=== PATIENT | female | born 1960 | race Hispanic/Latino ===

== ENCOUNTER → 2017-12-08 | Outpatient (CLI) | payer MEDICAID ==
[~2017-12-08] MED LIST: ASPI-1197 PO; INSU100V12 SQ; LEVO50TA11 PO; LOVA20TA3 PO; METO-408 PO; NEOM28.44 TP; PANT40TA25 PO; RANO500T3 PO; SERT100T12 PO; SITA100T12 PO; TRAZ-187 PO
== END | disposition home or self-care (01) ==
LOC: RAH 08:00
PROVIDERS: ATTEND Internal Medicine Cardiovascular Disease
DX: R18.8 Other ascites (principal)
CPT/HCPCS: 76700

== ENCOUNTER → 2017-12-16 | Outpatient (CLI) | payer MEDICAID ==
[~2017-12-16] MED LIST changes: +REGADENOSON 0.4 MG/5 ML PF SYG IVP SCH
== END | disposition home or self-care (01) ==
LOC: SHCH 08:11
PROVIDERS: ATTEND Internal Medicine Cardiovascular Disease
DX: I25.118 Atherosclerotic heart disease of native coronary artery with other forms of angina pectoris (principal); I10 Essential (primary) hypertension
CPT/HCPCS: 78452; 93017; 96374; A9500 ×2; J2785

== ENCOUNTER → 2017-12-22 | Outpatient (CLI) | payer MEDICAID ==
[~2017-12-22] MED LIST changes: -REGADENOSON 0.4 MG/5 ML PF SYG IVP SCH
== END | disposition home or self-care (01) ==
LOC: SHCH 15:46
PROVIDERS: ATTEND Internal Medicine Cardiovascular Disease
DX: I51.7 Cardiomegaly (principal); I10 Essential (primary) hypertension
CPT/HCPCS: 93306

== ENCOUNTER → 2018-01-11 | Outpatient (CLI) | payer MEDICAID | END | disposition home or self-care (01) | LOC: SHCH 10:54 | PROVIDERS: ATTEND Internal Medicine Cardiovascular Disease | DX: I73.9 Peripheral vascular disease, unspecified (principal) | CPT/HCPCS: 93925 ==

== ENCOUNTER → 2018-05-24 | Outpatient (CLI) | payer MEDICAID | END | disposition home or self-care (01) | LOC: RAH 08:55 | PROVIDERS: ATTEND Internal Medicine Gastroenterology | DX: R16.0 Hepatomegaly, not elsewhere classified (principal); K76.9 Liver disease, unspecified; B19.20 Unspecified viral hepatitis C without hepatic coma | CPT/HCPCS: 76700; 93975 ==

== ENCOUNTER → 2018-06-06 | Outpatient (CLI) | payer MEDICAID ==
[~2018-06-06] MED LIST changes: +IOHEXOL-350 75 ML VIAL IV ONE
== END | disposition home or self-care (01) ==
LOC: RAH 09:01
PROVIDERS: ATTEND Internal Medicine Gastroenterology
DX: R77.2 Abnormality of alphafetoprotein (principal); N32.89 Other specified disorders of bladder; Z90.49 Acquired absence of other specified parts of digestive tract; Z90.710 Acquired absence of both cervix and uterus
CPT/HCPCS: 74178; Q9967

== ENCOUNTER → 2018-08-02 | Outpatient (CLI) | payer MEDICAID ==
[~2018-08-02] MED LIST changes: -IOHEXOL-350 75 ML VIAL IV ONE
== END | disposition home or self-care (01) ==
LOC: SHCH 12:59
PROVIDERS: ATTEND Internal Medicine Cardiovascular Disease
DX: I73.9 Peripheral vascular disease, unspecified (principal)
CPT/HCPCS: 93930

== ENCOUNTER → 2019-05-21 | Outpatient (CLI) | payer MEDICAID ==
[~2019-05-21] VITALS: Ht 167.6 cm; Wt 88.0 kg
[~2019-05-21] MED LIST changes: +REGADENOSON 0.4 MG/5 ML PF SYG IVP SCH
== END | disposition home or self-care (01) ==
LOC: SHCH 08:08
PROVIDERS: ATTEND Internal Medicine Cardiovascular Disease
DX: I10 Essential (primary) hypertension (principal)
CPT/HCPCS: 78452; 93017; 96374; A9500 ×2; J2785

== ENCOUNTER → 2019-06-01 | Outpatient (CLI) | payer MEDICAID ==
[~2019-06-01] MED LIST changes: -REGADENOSON 0.4 MG/5 ML PF SYG IVP SCH
== END | disposition home or self-care (01) ==
LOC: SHCH 15:15
PROVIDERS: ATTEND Internal Medicine Cardiovascular Disease
DX: I73.9 Peripheral vascular disease, unspecified (principal)
CPT/HCPCS: 93925

== ENCOUNTER → 2019-08-02 | Outpatient (CLI) | payer MEDICAID | END | disposition home or self-care (01) | LOC: RAH 14:31 | PROVIDERS: ATTEND Internal Medicine | DX: E04.2 Nontoxic multinodular goiter (principal); E03.9 Hypothyroidism, unspecified; R13.10 Dysphagia, unspecified | CPT/HCPCS: 76536 ==

== ENCOUNTER → 2020-02-11 | Outpatient (CLI) | payer MEDICAID ==
[~2020-02-11] MED LIST changes: -PANT40TA25 PO; +PANT40TA54 PO
== END | disposition home or self-care (01) ==
LOC: RAH 08:29
PROVIDERS: ATTEND Internal Medicine Gastroenterology
DX: K76.0 Fatty (change of) liver, not elsewhere classified (principal); R16.2 Hepatomegaly with splenomegaly, not elsewhere classified; Z90.49 Acquired absence of other specified parts of digestive tract
CPT/HCPCS: 76700; 93975

== ENCOUNTER → 2020-06-20 | Outpatient (CLI) | payer MEDICAID | END | disposition home or self-care (01) | LOC: RAH 10:18 | PROVIDERS: ATTEND Internal Medicine | DX: E04.2 Nontoxic multinodular goiter (principal); I48.91 Unspecified atrial fibrillation | CPT/HCPCS: 76536 ==

== ENCOUNTER → 2020-08-12 | Outpatient (CLI) | payer MEDICAID | END | disposition home or self-care (01) | LOC: RAH 08:41 | PROVIDERS: ATTEND Internal Medicine Gastroenterology | DX: K76.0 Fatty (change of) liver, not elsewhere classified (principal); Z90.49 Acquired absence of other specified parts of digestive tract | CPT/HCPCS: 76700; 93975 ==

== ENCOUNTER → 2021-01-28 | Outpatient (CLI) | payer MEDICAID ==
[~2021-01-28] MED LIST changes: +SERT-440 PO; -SERT100T12 PO
== END | disposition home or self-care (01) ==
LOC: RAH 13:22
PROVIDERS: ATTEND Family Medicine
DX: Z12.31 Encounter for screening mammogram for malignant neoplasm of breast (principal)
CPT/HCPCS: 77067

== ENCOUNTER 2021-04-24 12:32 | Emergency (ER) | payer MEDICAID ==
[~2021-04-24] VITALS: Ht 167.6 cm; Wt 74.8 kg
[2021-04-24] MEDS ORDERED: LACTATED RINGERS 1000ML 1,000 ML IV ONE (13:00)
[2021-04-24 13:39] LABS: BASOPHILS % (AUTO) 0.2 % (0.0-5.0); EOSINOPHILS % (AUTO) 1.7 % (0.0-8.0); HEMATOCRIT 37.2 % (36-48); LYMPHOCYTES % (AUTO) 23.5 % (21.0-51.0); MEAN CORPUSCULAR HEMOGLOBIN 24.3 pg (27.0-33.0); MEAN CORPUSCULAR HGB CONC 32.3 g/dL (32.0-36.0); MEAN CORPUSCULAR VOLUME 75.5 fL (79-99); MONOCYTES % (AUTO) 6.5 % (3.0-13.0); NEUTROPHILS % (AUTO) 67.7 % (40.0-77.0); PLATELET COUNT (AUTO) 172 K/uL (130-400); RED BLOOD CELL COUNT(AUTO) 4.93 MIL/uL (4.00-5.50); RED CELL DISTRIBUTION WIDTH 14.5 % (11.0-15.5); WHITE BLOOD COUNT (AUTO) 9.9 K/uL (4.8-10.8)
[2021-04-24 13:53] LABS: CREATININE 0.8 mg/dL (0.5-1.5); POTASSIUM 3.9 mmol/L (3.5-5.1)
[2021-04-24 13:57] LABS: ALBUMIN 3.7 g/dL (3.5-5.0); BILIRUBIN,TOTAL 0.3 mg/dL (0.2-1.0); TOTAL PROTEIN, SERUM 7.9 g/dL (6.0-8.3)
[2021-04-24 13:58] VITALS: BP 130/61
[2021-04-24 14:06] LABS: APPEARANCE,URINE Clear (CLEAR); BILIRUBIN,URINE Negative (NEGATIVE); COLOR,URINE Yellow (YELLOW); GLUCOSE, URINE (UA) >=1000 mg/dL (NEGATIVE); KETONES,URINE Negative (NEGATIVE); LEUKOCYTE ESTERASE ,URINE Small (NEGATIVE); NITRATE,URINE Negative (NEGATIVE); OCCULT BLOOD,URINE Negative (NEGATIVE); PROTEIN,URINE Negative (NEGATIVE); UROBILINOGEN,URINE 0.2 mg/dL (0.2-1.0)
[2021-04-24 14:42] LABS: BACTERIA,URINE Few /HPF (None Seen); RBC,URINE 0-1 /HPF (0-1); YEAST,URINE BUDDING Moderate /HPF (None Seen)
[2021-04-24 14:58] VITALS: BP 139/53
[2021-04-24 17:59] VITALS: BP 132/86
== END 2021-04-24 18:08 | disposition home or self-care (01) ==
LOC: EDH 12:32
DX: E10.65 Type 1 diabetes mellitus with hyperglycemia (principal); Z91.19 Patient's noncompliance with other medical treatment and regimen; E78.00 Pure hypercholesterolemia, unspecified; I10 Essential (primary) hypertension; K21.9 Gastro-esophageal reflux disease without esophagitis; Z79.4 Long term (current) use of insulin; Z79.82 Long term (current) use of aspirin; Z79.899 Other long term (current) drug therapy
CPT/HCPCS: 36415; 80053; 81001; 84484 ×2; 85025; 93005; 96360; 99284; J7120

== ENCOUNTER 2021-06-10 12:09 | Observation (INO) | payer MEDICAID ==
[~2021-06-10] VITALS: Ht 167.6 cm; Wt 95.7 kg
[2021-06-10 12:38] LABS: BASOPHILS % (AUTO) 0.4 % (0.0-5.0); HEMATOCRIT 35.7 % (36-48); LYMPHOCYTES % (AUTO) 27.5 % (21.0-51.0); MEAN CORPUSCULAR HEMOGLOBIN 24.6 pg (27.0-33.0); MEAN CORPUSCULAR HGB CONC 32.2 g/dL (32.0-36.0); MEAN CORPUSCULAR VOLUME 76.4 fL (79-99); MONOCYTES % (AUTO) 6.9 % (3.0-13.0); NEUTROPHILS % (AUTO) 62.5 % (40.0-77.0); PLATELET COUNT (AUTO) 185 K/uL (130-400); RED BLOOD CELL COUNT(AUTO) 4.67 MIL/uL (4.00-5.50); RED CELL DISTRIBUTION WIDTH 15.4 % (11.0-15.5); WHITE BLOOD COUNT (AUTO) 8.5 K/uL (4.8-10.8)
[2021-06-10 12:52] LABS: CREATININE 0.9 mg/dL (0.5-1.5); POTASSIUM 4.1 mmol/L (3.5-5.1)
[2021-06-10 12:56] LABS: ALBUMIN 3.6 g/dL (3.5-5.0); BILIRUBIN,TOTAL 0.3 mg/dL (0.2-1.0); TOTAL PROTEIN, SERUM 7.6 g/dL (6.0-8.3)
[2021-06-10] MEDS ORDERED: GLUCAGON 1MG KIT 1 MG ML IM PRN (14:30)
[2021-06-10] MEDS ORDERED: MAGNESIUM 2GM PREMIX 50ML 50 ML IV PRN (14:30)
[2021-06-10] MEDS ORDERED: KCL 20 MEQ ERTAB PO PRN (14:30)
[2021-06-10] MEDS ORDERED: DEXTROSE 50%-WATER 50 ML DISP.SYRIN IV PRN (14:30)
[2021-06-10] MEDS ORDERED: POTASSIUM CHLORIDE 20MEQ/100ML 100 ML IV PRN ×2 (14:30)
[2021-06-10] MEDS ORDERED: POTASSIUM CHLORIDE 10% ELIXIR 20 MEQ/15 ML UDCUP PO PRN (14:30)
[2021-06-10] MEDS ORDERED: LIDOCAINE HCL-MPF 1% 2ML VIAL IV PRN ×2 (14:30)
[2021-06-10] MEDS ORDERED: ACETAMINOPHEN 325 MG TAB PO PRN (15:00)
[2021-06-10] MEDS ORDERED: ONDANSETRON 4MG INJ IVP PRN (15:00)
[2021-06-10] MEDS ORDERED: MORPHINE 2 MG SYG IVP PRN (15:00)
[2021-06-10] MEDS: NITROGLYCERIN 1GM OINT 1 INCH/1GM TD SCH ×2 (15:05→21:41)
[2021-06-10 15:12] LABS: HEMOGLOBIN A1C 9.6 % (4.0-6.0)
[2021-06-10] MEDS ORDERED: RANO10003 PO (17:18)
[2021-06-10] MEDS: INSULIN HUMULIN R 100 UNIT/ML 3ML SQ SCH ×2 (17:36→20:22)
[2021-06-10] MEDS: FAMOTIDINE 20MG TAB PO SCH (21:41)
[2021-06-11 05:03] LABS: HEMATOCRIT 35.9 % (36-48); MEAN CORPUSCULAR HEMOGLOBIN 24.4 pg (27.0-33.0); MEAN CORPUSCULAR VOLUME 76.2 fL (79-99); RED BLOOD CELL COUNT(AUTO) 4.71 MIL/uL (4.00-5.50); RED CELL DISTRIBUTION WIDTH 15.6 % (11.0-15.5); WHITE BLOOD COUNT (AUTO) 7.5 K/uL (4.8-10.8)
[2021-06-11 05:18] LABS: ALBUMIN 3.5 g/dL (3.5-5.0); BILIRUBIN,TOTAL 0.3 mg/dL (0.2-1.0); CREATININE 0.6 mg/dL (0.5-1.5); POTASSIUM 3.8 mmol/L (3.5-5.1); TOTAL PROTEIN, SERUM 7.4 g/dL (6.0-8.3)
[2021-06-11] MEDS: INSULIN HUMULIN R 100 UNIT/ML 3ML SQ SCH ×2 (07:30→11:11)
[2021-06-11] MEDS: NITROGLYCERIN 1GM OINT 1 INCH/1GM TD SCH (08:00)
[2021-06-11] MEDS: FAMOTIDINE 20MG TAB PO SCH (08:00)
[2021-06-11] MEDS ORDERED: ASPIRIN 325MG TAB PO SCH (09:00)
[2021-06-11] MEDS ORDERED: IOHEXOL-350 75 ML VIAL IV ONE (09:32)
[2021-06-11 11:01] VITALS: BP 112/43
== END 2021-06-11 13:09 | disposition home or self-care (01) ==
LOC: EDH 12:09 → EDHIP 12:10 → UNDOADMOB 14:29 → EDHIP 06-11 13:09
PROVIDERS: ADMIT Internal Medicine Critical Care Medicine; ATTEND Internal Medicine Critical Care Medicine
DX: R07.89 Other chest pain (principal); Z20.822 Contact with and (suspected) exposure to COVID-19; I10 Essential (primary) hypertension; I21.4 Non-ST elevation (NSTEMI) myocardial infarction; E11.65 Type 2 diabetes mellitus with hyperglycemia; E03.9 Hypothyroidism, unspecified; I25.10 Atherosclerotic heart disease of native coronary artery without angina pectoris; R20.0 Anesthesia of skin; E66.9 Obesity, unspecified; D64.9 Anemia, unspecified; E78.00 Pure hypercholesterolemia, unspecified; E78.5 Hyperlipidemia, unspecified; I25.2 Old myocardial infarction; K75.9 Inflammatory liver disease, unspecified; Z68.34 Body mass index [BMI] 34.0-34.9, adult; Z79.4 Long term (current) use of insulin; Z79.82 Long term (current) use of aspirin; Z79.84 Long term (current) use of oral hypoglycemic drugs; Z79.890 Hormone replacement therapy; Z79.899 Other long term (current) drug therapy; Z98.890 Other specified postprocedural states; Z86.19 Personal history of other infectious and parasitic diseases
CPT/HCPCS: 36415 ×2; 71045; 71275; 80053 ×2; 82948 ×2; 83036; 83880; 84443; 84484 ×4; 85025; 85027; 85378; 87635; 93005 ×2; 96372 ×2; 99285; G0378 ×22; J1815 ×2; J3490; Q9967

== ENCOUNTER → 2021-07-13 | Outpatient (CLI) | payer MEDICAID ==
[~2021-07-13] MED LIST changes: +RANO10003 PO; -RANO500T3 PO; +REGADENOSON 0.4 MG/5 ML PF SYG IVP SCH
== END | disposition home or self-care (01) ==
LOC: SHCH 07:49
PROVIDERS: ATTEND Internal Medicine Cardiovascular Disease
DX: I25.119 Atherosclerotic heart disease of native coronary artery with unspecified angina pectoris (principal)
CPT/HCPCS: 78452; 93017; 96374; A9500 ×2; J2785

== ENCOUNTER 2021-07-24 12:16 | Inpatient (IN) | payer MEDICAID ==
[~2021-07-24] VITALS: Ht 152.4 cm; Wt 84.0 kg
[~2021-07-24 12:16] MED LIST changes: -REGADENOSON 0.4 MG/5 ML PF SYG IVP SCH
[2021-07-24] MEDS ORDERED: 0.9%NACL 1000ML 1,000 ML IV ONE (12:30)
[2021-07-24] MEDS ORDERED: INSULIN HUMULIN R 100 UNIT/ML 3ML SQ ONE (12:30)
[2021-07-24] MEDS ORDERED: 0.9% NACL 500ML IV.SOLN 1,000 ML IV ONE (12:39)
[2021-07-24 13:12] LABS: BASOPHILS % (AUTO) 0.3 % (0.0-5.0); EOSINOPHILS % (AUTO) 1.2 % (0.0-8.0); HEMATOCRIT 37.6 % (36-48); LYMPHOCYTES % (AUTO) 24.3 % (21.0-51.0); MEAN CORPUSCULAR HEMOGLOBIN 24.7 pg (27.0-33.0); MEAN CORPUSCULAR HGB CONC 31.6 g/dL (32.0-36.0); MONOCYTES % (AUTO) 5.4 % (3.0-13.0); NEUTROPHILS % (AUTO) 68.2 % (40.0-77.0); PLATELET COUNT (AUTO) 196 K/uL (130-400); RED BLOOD CELL COUNT(AUTO) 4.82 MIL/uL (4.00-5.50); RED CELL DISTRIBUTION WIDTH 16.3 % (11.0-15.5); WHITE BLOOD COUNT (AUTO) 11.5 K/uL (4.8-10.8)
[2021-07-24 13:12] LABS: APPEARANCE,URINE Clear (CLEAR); BILIRUBIN,URINE Negative (NEGATIVE); COLOR,URINE Yellow (YELLOW); GLUCOSE, URINE (UA) >=1000 mg/dL (NEGATIVE); KETONES,URINE Negative (NEGATIVE); LEUKOCYTE ESTERASE ,URINE Small (NEGATIVE); NITRATE,URINE Negative (NEGATIVE); OCCULT BLOOD,URINE Moderate (NEGATIVE); PROTEIN,URINE Negative (NEGATIVE); UROBILINOGEN,URINE 0.2 mg/dL (0.2-1.0)
[2021-07-24 13:30] LABS: POTASSIUM 3.8 mmol/L (3.5-5.1)
[2021-07-24 13:35] LABS: ALBUMIN 3.8 g/dL (3.5-5.0); BILIRUBIN,TOTAL 0.3 mg/dL (0.2-1.0); TOTAL PROTEIN, SERUM 7.7 g/dL (6.0-8.3)
[2021-07-24 13:47] LABS: BACTERIA,URINE Rare /HPF (None Seen); MUCUS,URINE Few LPF (None Seen); SQUAMOUS EPITHELIAL CELL,UR 0-2 /HPF (0-2); WBC,URINE 0-1 /HPF (0-1); YEAST,URINE BUDDING Few /HPF (None Seen)
[2021-07-24] MEDS ORDERED: ASPIRIN 325MG TAB PO ONE (14:00)
[2021-07-24] MEDS ORDERED: NITROGLYCERIN 1GM OINT 1 INCH/1GM TD ONE (14:00)
[2021-07-24] MEDS: FLUCONAZOLE 100 MG TAB PO SCH (14:24)
[2021-07-24] MEDS ORDERED: ACETAMINOPHEN 650 MG SUPPOSITORY RC PRN (14:30)
[2021-07-24] MEDS ORDERED: ACETAMINOPHEN 325 MG TAB PO PRN (14:30)
[2021-07-24 15:30] VITALS: BP 133/75
[2021-07-24] MEDS: INSULIN LISPRO 100 UNIT/ML 3ML SQ SCH ×2 (16:10→21:25)
[2021-07-24 19:52] VITALS: BP 102/46
[2021-07-24] MEDS: NYSTATIN-TRIAMCINOLONE CREAM 15 GM TP SCH (21:15)
[2021-07-24 23:51] VITALS: BP 122/72
[2021-07-25 03:38] VITALS: BP 112/70
[2021-07-25 05:03] LABS: BASOPHILS % (AUTO) 0.4 % (0.0-5.0); EOSINOPHILS % (AUTO) 2.4 % (0.0-8.0); HEMATOCRIT 33.8 % (36-48); LYMPHOCYTES % (AUTO) 31.7 % (21.0-51.0); MEAN CORPUSCULAR HEMOGLOBIN 24.7 pg (27.0-33.0); MEAN CORPUSCULAR HGB CONC 32.5 g/dL (32.0-36.0); MONOCYTES % (AUTO) 5.8 % (3.0-13.0); NEUTROPHILS % (AUTO) 58.8 % (40.0-77.0); PLATELET COUNT (AUTO) 189 K/uL (130-400); RED BLOOD CELL COUNT(AUTO) 4.45 MIL/uL (4.00-5.50); RED CELL DISTRIBUTION WIDTH 16.6 % (11.0-15.5); WHITE BLOOD COUNT (AUTO) 7.9 K/uL (4.8-10.8)
[2021-07-25 05:35] LABS: CREATININE 0.6 mg/dL (0.5-1.5); MAGNESIUM 2.1 mg/dL (1.80-2.40); PHOSPHORUS 4.4 mg/dL (2.5-4.9); POTASSIUM 3.7 mmol/L (3.5-5.1)
[2021-07-25 07:15] VITALS: BP 121/59
[2021-07-25] MEDS: INSULIN LISPRO 100 UNIT/ML 3ML SQ SCH ×3 (07:30→21:56)
[2021-07-25] MEDS: ASPIRIN 81MG CHEW TAB PO SCH (09:43)
[2021-07-25] MEDS: PANTOPRAZOLE 40 MG TAB DR PO SCH (09:44)
[2021-07-25] MEDS: SIMVASTATIN 20 MG TABLET PO SCH (09:44)
[2021-07-25] MEDS: ENOXAPARIN SODIUM 30 MG/0.3 ML SQ SCH (09:45)
[2021-07-25] MEDS: NYSTATIN-TRIAMCINOLONE CREAM 15 GM TP SCH ×2 (09:47→21:00)
[2021-07-25 11:10] VITALS: BP 151/82
[2021-07-25] MEDS ORDERED: INSU300I SQ (13:58)
[2021-07-25] MEDS ORDERED: METH-386 PO (13:58)
[2021-07-25] MEDS ORDERED: PNV1TABL97 PO (13:58)
[2021-07-25] MEDS ORDERED: METF-526 PO (13:58)
[2021-07-25] MEDS ORDERED: TICA90TA PO (13:58)
[2021-07-25] MEDS ORDERED: INSU100I45 SQ (13:58)
[2021-07-25] MEDS ORDERED: METO5TAB2 PO (13:58)
[2021-07-25] MEDS ORDERED: PROP10TA10 PO (13:58)
[2021-07-25] MEDS ORDERED: FAMO20TA8 PO (13:58)
[2021-07-25] MEDS ORDERED: EMPA25TA PO (13:58)
[2021-07-25] MEDS ORDERED: SIMV-46 PO (13:58)
[2021-07-25] MEDS ORDERED: OMEP20CA12 PO (13:58)
[2021-07-25 15:10] VITALS: BP 158/84
[2021-07-25] MEDS: FLUCONAZOLE 100 MG TAB PO SCH (15:16)
[2021-07-25 19:56] VITALS: BP 127/62
[2021-07-25] MEDS: METOCLOPRAMIDE 5 MG TABLET PO SCH (21:50)
[2021-07-25] MEDS: TICAGRELOR 90 MG TABLET PO SCH (21:50)
[2021-07-25] MEDS: PROPRANOLOL HCL 10 MG TAB PO SCH (21:50)
[2021-07-25 23:44] VITALS: BP 122/63
[2021-07-26 03:42] VITALS: BP 133/76
[2021-07-26] MEDS: INSULIN LISPRO 100 UNIT/ML 3ML SQ SCH ×4 (06:02→22:16)
[2021-07-26 07:15] VITALS: BP 139/62
[2021-07-26] MEDS ORDERED: ASPIRIN 81MG CHEW TAB PO SCH (09:00)
[2021-07-26] MEDS ORDERED: NON-FORMULARY MEDICATION 1 EACH (Simvastatin 40 MG) PO SCH (09:00)
[2021-07-26] MEDS: PANTOPRAZOLE 40 MG TAB DR PO SCH (09:01)
[2021-07-26] MEDS: SIMVASTATIN 20 MG TABLET PO SCH (09:01)
[2021-07-26] MEDS: SERTRALINE HCL 50 MG TABLET PO SCH (09:01)
[2021-07-26] MEDS: METOCLOPRAMIDE 5 MG TABLET PO SCH ×3 (09:01→22:10)
[2021-07-26] MEDS: PROPRANOLOL HCL 10 MG TAB PO SCH ×2 (09:01→22:10)
[2021-07-26] MEDS: TICAGRELOR 90 MG TABLET PO SCH ×2 (09:01→22:10)
[2021-07-26] MEDS: ASPIRIN 81MG CHEW TAB PO SCH (09:02)
[2021-07-26] MEDS: ENOXAPARIN SODIUM 30 MG/0.3 ML SQ SCH (09:02)
[2021-07-26] MEDS: NYSTATIN-TRIAMCINOLONE CREAM 15 GM TP SCH ×2 (09:03→22:11)
[2021-07-26] MEDS ORDERED: ALPRAZOLAM 0.25 MG TABLET PO PRN (10:00)
[2021-07-26 11:15] VITALS: BP 131/65
[2021-07-26] MEDS: FLUCONAZOLE 100 MG TAB PO SCH (13:38)
[2021-07-26 15:15] VITALS: BP 112/57
[2021-07-26 20:11] VITALS: BP 111/50
[2021-07-26 23:52] VITALS: BP 114/58
[2021-07-27] VITALS (13 sets, daily range): BP systolic 117–148; BP diastolic 56–80
[2021-07-27 04:39] LABS: HEMATOCRIT 37.5 % (36-48); MEAN CORPUSCULAR HEMOGLOBIN 24.6 pg (27.0-33.0); MEAN CORPUSCULAR HGB CONC 31.7 g/dL (32.0-36.0); MEAN CORPUSCULAR VOLUME 77.5 fL (79-99); RED BLOOD CELL COUNT(AUTO) 4.84 MIL/uL (4.00-5.50); RED CELL DISTRIBUTION WIDTH 16.7 % (11.0-15.5); WHITE BLOOD COUNT (AUTO) 9.1 K/uL (4.8-10.8)
[2021-07-27 04:58] LABS: ALBUMIN 3.7 g/dL (3.5-5.0); BILIRUBIN,TOTAL 0.4 mg/dL (0.2-1.0); CREATININE 0.8 mg/dL (0.5-1.5); MAGNESIUM 2.4 mg/dL (1.80-2.40); POTASSIUM 4.2 mmol/L (3.5-5.1); TOTAL PROTEIN, SERUM 7.7 g/dL (6.0-8.3)
[2021-07-27] MEDS: INSULIN LISPRO 100 UNIT/ML 3ML SQ SCH ×4 (07:30→22:57)
[2021-07-27] MEDS: TICAGRELOR 90 MG TABLET PO SCH ×2 (08:35→23:01)
[2021-07-27] MEDS: ASPIRIN 81MG CHEW TAB PO SCH (08:35)
[2021-07-27] MEDS: ENOXAPARIN SODIUM 30 MG/0.3 ML SQ SCH (08:35)
[2021-07-27] MEDS: METOCLOPRAMIDE 5 MG TABLET PO SCH ×3 (08:37→23:01)
[2021-07-27] MEDS: METOPROLOL SUCCINATE 50 MG TAB.SR.24H PO SCH ×2 (08:37→23:01)
[2021-07-27] MEDS: PANTOPRAZOLE 40 MG TAB DR PO SCH (08:37)
[2021-07-27] MEDS: SERTRALINE HCL 50 MG TABLET PO SCH (08:38)
[2021-07-27] MEDS: SIMVASTATIN 20 MG TABLET PO SCH (08:38)
[2021-07-27] MEDS: NYSTATIN-TRIAMCINOLONE CREAM 15 GM TP SCH ×2 (09:00→21:00)
[2021-07-27] MEDS ORDERED: LIDOCAINE HCL 400MG/20ML VIAL ONE (12:20)
[2021-07-27] MEDS ORDERED: SODIUM BICARB 50MEQ 50ML VIAL 50 ML ONE (12:20)
[2021-07-27] MEDS ORDERED: MIDAZOLAM HCL 1 MG/ML 2ML VIAL ONE (12:20)
[2021-07-27] MEDS ORDERED: IOHEXOL 350 MG/ML 100ML INFUS..BTL IV ONE (12:20)
[2021-07-27] MEDS ORDERED: NITROGLYCERIN 50MG VIAL IV ONE (12:20)
[2021-07-27] MEDS ORDERED: MEPERIDINE-PF 25 MG/ML SYG ONE (12:20)
[2021-07-27] MEDS ORDERED: IOHEXOL-350 50ML VIAL IV ONE (12:20)
[2021-07-27] MEDS ORDERED: HEPARIN 10,000 UNIT/10ML (1,000 UNIT/ML) VIAL ONE (12:20)
[2021-07-27 12:53] LABS: INR 1.01 (0.85-1.15)
[2021-07-27 12:54] LABS: PARTIAL THROMBOPLASTIN TIME 25.9 SEC (26.3-35.5)
[2021-07-27] MEDS ORDERED: 0.9%NACL 1000ML 1,000 ML IV SCH (14:30)
[2021-07-27] MEDS: 0.9%NACL 1000ML 1,000 ML IV SCH ×2 (23:42→23:43)
[2021-07-28] VITALS: BP 123/68
[2021-07-28 04:00] VITALS: BP 110/69
[2021-07-28 05:29] LABS: HEMATOCRIT 35.2 % (36-48); MEAN CORPUSCULAR HEMOGLOBIN 24.5 pg (27.0-33.0); MEAN CORPUSCULAR VOLUME 79.3 fL (79-99); RED BLOOD CELL COUNT(AUTO) 4.44 MIL/uL (4.00-5.50); RED CELL DISTRIBUTION WIDTH 16.5 % (11.0-15.5); WHITE BLOOD COUNT (AUTO) 8.2 K/uL (4.8-10.8)
[2021-07-28 05:41] LABS: CREATININE 0.7 mg/dL (0.5-1.5)
[2021-07-28] MEDS: INSULIN LISPRO 100 UNIT/ML 3ML SQ SCH (06:49)
[2021-07-28] MEDS: METOCLOPRAMIDE 5 MG TABLET PO SCH (08:37)
[2021-07-28] MEDS: ASPIRIN 81MG CHEW TAB PO SCH (08:37)
[2021-07-28] MEDS: TICAGRELOR 90 MG TABLET PO SCH (08:37)
[2021-07-28] MEDS: SERTRALINE HCL 50 MG TABLET PO SCH (08:37)
[2021-07-28] MEDS: SIMVASTATIN 20 MG TABLET PO SCH (08:37)
[2021-07-28] MEDS: NYSTATIN-TRIAMCINOLONE CREAM 15 GM TP SCH (08:38)
[2021-07-28] MEDS: METOPROLOL SUCCINATE 50 MG TAB.SR.24H PO SCH (08:38)
[2021-07-28] MEDS: PANTOPRAZOLE 40 MG TAB DR PO SCH (08:38)
[2021-07-28 09:32] VITALS: BP 114/66
[2021-07-28] MEDS ORDERED: NYST15CR2 TP (11:19)
[2021-07-28] MEDS ORDERED: METO50TA9 PO (11:19)
[2021-07-28 11:22] VITALS: BP 126/62
== END 2021-07-28 12:34 | disposition home or self-care (01) | DRG 175 ==
LOC: EDH 12:16 → OBSVTOIN 12:17 → EDHIP 12:17 → 3AH 15:32
PROVIDERS: ADMIT Internal Medicine Critical Care Medicine; ATTEND Internal Medicine Critical Care Medicine
PROC: 027035Z Dilation of Coronary Artery, One Artery with Two Drug-eluting Intraluminal Devices, Percutaneous Approach (ICD-10-PCS; principal; 2021-07-27)
PROC: 4A023N7 Measurement of Cardiac Sampling and Pressure, Left Heart, Percutaneous Approach (ICD-10-PCS; 2021-07-27)
PROC: B2111ZZ Fluoroscopy of Multiple Coronary Arteries using Low Osmolar Contrast (ICD-10-PCS; 2021-07-27)
PROC: B2151ZZ Fluoroscopy of Left Heart using Low Osmolar Contrast (ICD-10-PCS; 2021-07-27)
DX: I25.110 Atherosclerotic heart disease of native coronary artery with unstable angina pectoris (principal); E11.51 Type 2 diabetes mellitus with diabetic peripheral angiopathy without gangrene; E11.65 Type 2 diabetes mellitus with hyperglycemia; B35.6 Tinea cruris; E03.9 Hypothyroidism, unspecified; I25.2 Old myocardial infarction; I10 Essential (primary) hypertension; E78.5 Hyperlipidemia, unspecified; E78.00 Pure hypercholesterolemia, unspecified; R09.89 Other specified symptoms and signs involving the circulatory and respiratory systems; E66.9 Obesity, unspecified; Z68.34 Body mass index [BMI] 34.0-34.9, adult; Z79.4 Long term (current) use of insulin; Z91.51 Personal history of suicidal behavior; Z83.3 Family history of diabetes mellitus; Z82.49 Family history of ischemic heart disease and other diseases of the circulatory system
CPT/HCPCS: 36415; 71045; 80048; 80053; 81001; 82550; 82948; 83735; 83874; 84100; 84484; 85025; 85027; 85347; 85610; 85730; 93005; 93458; 99156; 99157; C1760; C1769; C1894; C9600; G0378; J1644; J1650; J1815; J2175; J2250; J3490; J7040; Q9967

== ENCOUNTER 2021-08-31 15:06 | Emergency (ER) | payer MEDICAID ==
[~2021-08-31] VITALS: Ht 172.7 cm; Wt 97.5 kg
[~2021-08-31 15:06] MED LIST changes: +EMPA25TA PO; +FAMO20TA8 PO; +INSU100I45 SQ; -INSU100V12 SQ; +INSU300I SQ; -LOVA20TA3 PO; +METF-526 PO; +METH-386 PO; -METO-408 PO; +METO50TA9 PO; +METO5TAB2 PO; -NEOM28.44 TP; +NYST15CR2 TP; +OMEP20CA12 PO; -PANT40TA54 PO; +PNV1TABL97 PO; -RANO10003 PO; +SIMV-46 PO; -SITA100T12 PO; +TICA90TA PO; -TRAZ-187 PO
[2021-08-31] MEDS ORDERED: ACETAMINOPHEN WITH CODEINE 1 TAB TAB PO ONE (16:00)
[2021-08-31] MEDS ORDERED: ALBUTEROL INHALER 90MCG/INH IH PRN (16:00)
[2021-08-31] MEDS ORDERED: D-ME1POW16 PO (16:03)
[2021-08-31] MEDS ORDERED: NIRM1TAB PO (16:03)
[2021-08-31 16:49] VITALS: BP 96/57
== END 2021-08-31 16:55 | disposition home or self-care (01) ==
LOC: EDH 15:06
DX: U07.1 COVID-19 (principal); J06.9 Acute upper respiratory infection, unspecified; E11.9 Type 2 diabetes mellitus without complications; E66.9 Obesity, unspecified; E78.00 Pure hypercholesterolemia, unspecified; Z79.4 Long term (current) use of insulin; Z79.82 Long term (current) use of aspirin; Z79.899 Other long term (current) drug therapy; Z90.49 Acquired absence of other specified parts of digestive tract; Z95.5 Presence of coronary angioplasty implant and graft; Z68.32 Body mass index [BMI] 32.0-32.9, adult
CPT/HCPCS: 71045; 87426; 87804; 87880

== ENCOUNTER 2021-09-07 13:24 | Emergency (ER) | payer MEDICAID ==
[~2021-09-07] VITALS: Ht 162.6 cm; Wt 63.5 kg
[~2021-09-07 13:24] MED LIST changes: +D-ME1POW16 PO; +NIRM1TAB PO
[2021-09-07 13:26] VITALS: BP 135/88
== END 2021-09-07 16:13 | disposition home or self-care (01) ==
LOC: EDH 13:24
DX: Z00.00 Encounter for general adult medical examination without abnormal findings (principal); E11.9 Type 2 diabetes mellitus without complications; E78.00 Pure hypercholesterolemia, unspecified; I10 Essential (primary) hypertension; Z79.899 Other long term (current) drug therapy; Z79.84 Long term (current) use of oral hypoglycemic drugs; Z79.4 Long term (current) use of insulin; Z79.82 Long term (current) use of aspirin; Z98.890 Other specified postprocedural states

== ENCOUNTER 2021-11-11 09:44 | Emergency (ER) | payer MEDICAID ==
[~2021-11-11] VITALS: Ht 175.3 cm; Wt 127.0 kg
[2021-11-11 10:18] LABS: BASOPHILS % (AUTO) 0.3 % (0.0-5.0); EOSINOPHILS % (AUTO) 2.5 % (0.0-8.0); HEMATOCRIT 35.3 % (36-48); MEAN CORPUSCULAR HEMOGLOBIN 24.6 pg (27.0-33.0); MEAN CORPUSCULAR VOLUME 76.7 fL (79-99); NEUTROPHILS % (AUTO) 74.5 % (40.0-77.0); PLATELET COUNT (AUTO) 204 K/uL (130-400); RED CELL DISTRIBUTION WIDTH 15.7 % (11.0-15.5); WHITE BLOOD COUNT (AUTO) 9.1 K/uL (4.8-10.8)
[2021-11-11 10:37] LABS: CREATININE 1.4 mg/dL (0.5-1.5); POTASSIUM 4.3 mmol/L (3.5-5.1)
[2021-11-11 10:42] LABS: ALBUMIN 3.5 g/dL (3.5-5.0); BILIRUBIN,TOTAL 0.4 mg/dL (0.2-1.0); TOTAL PROTEIN, SERUM 7.6 g/dL (6.0-8.3)
[2021-11-11] MEDS ORDERED: INSULIN HUMULIN R 100 UNIT/ML 3ML SQ ONE (11:00)
[2021-11-11] MEDS ORDERED: 0.9%NACL 1000ML 2,000 ML IV ONE (11:00)
[2021-11-11 11:05] LABS: APPEARANCE,URINE CLEAR (CLEAR); BILIRUBIN,URINE MODERATE (NEGATIVE); COLOR,URINE YELLOW (YELLOW); GLUCOSE, URINE (UA) 500 mg/dL (NEGATIVE); KETONES,URINE 15 mg/dL (NEGATIVE); LEUKOCYTE ESTERASE ,URINE SMALL (NEGATIVE); NITRATE,URINE NEGATIVE (NEGATIVE); OCCULT BLOOD,URINE NEGATIVE (NEGATIVE); PROTEIN,URINE 30 mg/dL (NEGATIVE)
[2021-11-11 11:25] LABS: BACTERIA,URINE Rare /HPF (None Seen); RBC,URINE 0-1 /HPF (0-1); SQUAMOUS EPITHELIAL CELL,UR Rare /HPF (0-2); WBC,URINE 0-1 /HPF (0-1)
[2021-11-11 11:28] VITALS: BP 112/74
== END 2021-11-11 13:47 | disposition home or self-care (01) ==
LOC: EDH 09:44
DX: E11.65 Type 2 diabetes mellitus with hyperglycemia (principal); E86.9 Volume depletion, unspecified; E78.00 Pure hypercholesterolemia, unspecified; I10 Essential (primary) hypertension; Z79.899 Other long term (current) drug therapy; Z79.84 Long term (current) use of oral hypoglycemic drugs; Z79.82 Long term (current) use of aspirin; Z79.4 Long term (current) use of insulin; Z98.890 Other specified postprocedural states
CPT/HCPCS: 36415; 80053; 81001; 82948 ×2; 84484; 85025; 93005; 96360; 96372; 99284; J1815; J7030

== ENCOUNTER 2022-01-05 11:49 | Emergency (ER) | payer MEDICAID ==
[~2022-01-05] VITALS: Ht 177.8 cm; Wt 97.1 kg
[2022-01-05 11:54] VITALS: BP 118/55
[2022-01-05 12:23] LABS: APPEARANCE,URINE CLEAR (CLEAR); BILIRUBIN,URINE NEGATIVE (NEGATIVE); COLOR,URINE YELLOW (YELLOW); GLUCOSE, URINE (UA) >=1000 mg/dL (NEGATIVE); KETONES,URINE NEGATIVE (NEGATIVE); LEUKOCYTE ESTERASE ,URINE NEGATIVE (NEGATIVE); NITRATE,URINE NEGATIVE (NEGATIVE); OCCULT BLOOD,URINE NEGATIVE (NEGATIVE); PROTEIN,URINE NEGATIVE (NEGATIVE); UROBILINOGEN,URINE 0.2 mg/dL (0.2-1.0)
[2022-01-05 12:23] LABS: ABG BASE EXCESS -2.4 mmol/L (-2.0-3.0); ABG HCO3 22.3 mmol/L (21.0-28.0); ABG OXYGEN SATURATION 94.8 % (95.0-99.0); ABG PCO2 38 mmHg (32-45)
[2022-01-05 12:23] LABS: BASOPHILS % (AUTO) 0.4 % (0.0-5.0); EOSINOPHILS % (AUTO) 2.1 % (0.0-8.0); HEMATOCRIT 33.7 % (36-48); LYMPHOCYTES % (AUTO) 22.6 % (21.0-51.0); MEAN CORPUSCULAR HEMOGLOBIN 24.8 pg (27.0-33.0); MEAN CORPUSCULAR VOLUME 77.3 fL (79-99); MONOCYTES % (AUTO) 5.4 % (3.0-13.0); NEUTROPHILS % (AUTO) 68.8 % (40.0-77.0); PLATELET COUNT (AUTO) 182 K/uL (130-400); RED BLOOD CELL COUNT(AUTO) 4.36 MIL/uL (4.00-5.50); WHITE BLOOD COUNT (AUTO) 7.3 K/uL (4.8-10.8)
[2022-01-05 12:39] LABS: ALBUMIN 3.6 g/dL (3.5-5.0); BILIRUBIN,TOTAL 0.3 mg/dL (0.2-1.0); CREATININE 1.1 mg/dL (0.5-1.5); POTASSIUM 4.3 mmol/L (3.5-5.1); TOTAL PROTEIN, SERUM 7.5 g/dL (6.0-8.3)
[2022-01-05 12:52] LABS: BACTERIA,URINE Few /HPF (None Seen); RBC,URINE 0-1 /HPF (0-1); WBC,URINE 0-1 /HPF (0-1)
[2022-01-05 12:53] LABS: YEAST,URINE BUDDING Few /HPF (None Seen)
[2022-01-05] MEDS: 0.9%NACL 1000ML 1,000 ML IV ONE (13:45)
[2022-01-05] MEDS: INSULIN HUMULIN R 100 UNIT/ML 3ML IV ONE (13:45)
== END 2022-01-05 15:41 | disposition home or self-care (01) ==
LOC: EDH 11:49
DX: E11.65 Type 2 diabetes mellitus with hyperglycemia (principal); E78.00 Pure hypercholesterolemia, unspecified; F20.9 Schizophrenia, unspecified; Z79.899 Other long term (current) drug therapy; Z79.84 Long term (current) use of oral hypoglycemic drugs; Z79.82 Long term (current) use of aspirin; Z79.4 Long term (current) use of insulin; Z98.890 Other specified postprocedural states
CPT/HCPCS: 36415; 36600; 80053; 81001; 82803; 82948; 85025; 96361; 96374; 99283; J1815; J7030

== ENCOUNTER 2022-01-16 17:13 | Observation (INO) | payer MEDICAID ==
[~2022-01-16] VITALS: Ht 165.1 cm; Wt 93.2 kg
[2022-01-16 17:38] LABS: BASOPHILS % (AUTO) 0.3 % (0.0-5.0); EOSINOPHILS % (AUTO) 1.7 % (0.0-8.0); LYMPHOCYTES % (AUTO) 26.9 % (21.0-51.0); MEAN CORPUSCULAR HEMOGLOBIN 24.8 pg (27.0-33.0); MEAN CORPUSCULAR HGB CONC 31.7 g/dL (32.0-36.0); MEAN CORPUSCULAR VOLUME 78.3 fL (79-99); MONOCYTES % (AUTO) 8.2 % (3.0-13.0); NEUTROPHILS % (AUTO) 62.5 % (40.0-77.0); PLATELET COUNT (AUTO) 206 K/uL (130-400)
[2022-01-16 17:47] LABS: POTASSIUM 4.1 mmol/L (3.5-5.1)
[2022-01-16 17:57] LABS: ALBUMIN 3.9 g/dL (3.5-5.0); BILIRUBIN,TOTAL 0.4 mg/dL (0.2-1.0)
[2022-01-16] MEDS ORDERED: ASPIRIN 325MG TAB PO STA (20:34)
[2022-01-16] MEDS ORDERED: ENOXAPARIN SODIUM 100 MG/1 ML SQ STA ×2 (20:39→20:40)
[2022-01-16] MEDS ORDERED: LORATADINE 10 MG TABLET PO SCH (21:00)
[2022-01-16] MEDS ORDERED: ZOLPIDEM TARTRATE 5 MG TAB PO PRN (22:30)
[2022-01-16] MEDS ORDERED: ONDANSETRON 4MG INJ IV PRN (22:30)
[2022-01-16] MEDS: NITROGLYCERIN 1GM OINT 1 INCH/1GM TD SCH (22:59)
[2022-01-16 23:18] VITALS: BP 141/73
[2022-01-16] MEDS ORDERED: PROP20TA7 PO (23:35)
[2022-01-16] MEDS ORDERED: METF-526 PO (23:35)
[2022-01-16] MEDS ORDERED: OMEP20TA20 PO (23:35)
[2022-01-16] MEDS ORDERED: METO5TAB2 PO (23:35)
[2022-01-16] MEDS ORDERED: FAMO20TA8 PO (23:35)
[2022-01-16] MEDS ORDERED: INSU300I SQ (23:35)
[2022-01-16] MEDS ORDERED: PALI546S IM (23:35)
[2022-01-16] MEDS ORDERED: INSU100I3 SQ ×3 (23:35)
[2022-01-16] MEDS ORDERED: AEC81 PO (23:35)
[2022-01-16] MEDS ORDERED: METH-386 PO (23:35)
[2022-01-16] MEDS ORDERED: SERT-440 PO (23:35)
[2022-01-16] MEDS ORDERED: SIMV-46 PO (23:35)
[2022-01-16] MEDS ORDERED: TICA90TA PO (23:35)
[2022-01-17 04:33] VITALS: BP 133/73
[2022-01-17 05:24] LABS: BASOPHILS % (AUTO) 0.4 % (0.0-5.0); EOSINOPHILS % (AUTO) 2.4 % (0.0-8.0); HEMATOCRIT 32.6 % (36-48); MEAN CORPUSCULAR HEMOGLOBIN 24.3 pg (27.0-33.0); MEAN CORPUSCULAR VOLUME 78.6 fL (79-99); MONOCYTES % (AUTO) 9.3 % (3.0-13.0); NEUTROPHILS % (AUTO) 59.3 % (40.0-77.0); PLATELET COUNT (AUTO) 176 K/uL (130-400); RED BLOOD CELL COUNT(AUTO) 4.15 MIL/uL (4.00-5.50); RED CELL DISTRIBUTION WIDTH 16.1 % (11.0-15.5); WHITE BLOOD COUNT (AUTO) 7.1 K/uL (4.8-10.8)
[2022-01-17 05:41] LABS: HEMOGLOBIN A1C 10.4 % (4.0-6.0)
[2022-01-17 05:58] LABS: CREATININE 0.8 mg/dL (0.5-1.5); MAGNESIUM 1.9 mg/dL (1.80-2.40); PHOSPHORUS 3.8 mg/dL (2.5-4.9); POTASSIUM 3.8 mmol/L (3.5-5.1); THYROID STIMULATING HORMONE 9.11 uIU/mL (0.36-3.74)
[2022-01-17] MEDS: INSULIN HUMULIN R 100 UNIT/ML 3ML SQ SCH ×4 (06:21→20:10)
[2022-01-17] MEDS: NITROGLYCERIN 1GM OINT 1 INCH/1GM TD SCH ×3 (06:22→23:09)
[2022-01-17 08:00] VITALS: BP 105/54
[2022-01-17] MEDS ORDERED: FAMOTIDINE 20MG TAB PO SCH ×2 (09:00→21:00)
[2022-01-17] MEDS: TICAGRELOR 90 MG TABLET PO SCH ×2 (09:06→20:11)
[2022-01-17] MEDS: ENOXAPARIN SODIUM 40 MG/0.4 ML SYRINGE SQ SCH (09:06)
[2022-01-17] MEDS: METHIMAZOLE 10 MG TAB PO SCH ×2 (09:06→20:12)
[2022-01-17] MEDS: LORATADINE 10 MG TABLET PO SCH (09:06)
[2022-01-17] MEDS: SIMVASTATIN 20 MG TABLET PO SCH (09:07)
[2022-01-17] MEDS: ASPIRIN 81 MG EC TAB PO SCH (09:07)
[2022-01-17] MEDS: PROPRANOLOL HCL 20 MG TAB PO SCH (09:07)
[2022-01-17] MEDS: PANTOPRAZOLE 40 MG TAB DR PO SCH (09:07)
[2022-01-17 12:00] VITALS: BP 152/75
[2022-01-17 12:49] LABS: CRP QUANTITATIVE 12.3 mg/L (0.00-9.0)
[2022-01-17 13:49] LABS: % IRON SATURATION 13.7 % (22-44)
[2022-01-17] MEDS: FLUTICASONE PROPIONATE 50MCG/SPRAY 16 GM BOTTLE EN SCH ×2 (14:06→23:10)
[2022-01-17 16:00] VITALS: BP 108/65
[2022-01-17] MEDS: IPRATROPIUM 0.5 MG/2.5 ML INH IH SCH ×2 (18:26→23:02)
[2022-01-17] MEDS: BUDESONIDE 0.5 MG/2 ML INH IH SCH (18:26)
[2022-01-17] MEDS: CEFTRIAXONE 1G VIAL IVP SCH (18:29)
[2022-01-17] MEDS: DOXYCYCLINE HYCLATE 100 MG TABLET PO SCH (20:11)
[2022-01-17 20:53] VITALS: BP 118/68
[2022-01-17] MEDS ORDERED: SERTRALINE HCL 50 MG TABLET PO SCH (21:00)
[2022-01-18 00:43] VITALS: BP 125/59
[2022-01-18 04:26] VITALS: BP 117/60
[2022-01-18 05:39] LABS: AMPHET/METH SCREEN,URINE NEGATIVE (NEGATIVE); BARBITURATE SCREEN, URINE NEGATIVE (NEGATIVE); BENZODIAZEPINES SCREEN,URINE NEGATIVE (NEGATIVE); CANNABINOID SCREEN,URINE NEGATIVE (NEGATIVE); COCAINE SCREEN,URINE NEGATIVE (NEGATIVE); OPIATE SCREEN,URINE NEGATIVE (NEGATIVE); PHENCYCLIDINE SCREEN,URINE NEGATIVE (NEGATIVE)
[2022-01-18] MEDS: CEFTRIAXONE 1G VIAL IVP SCH ×2 (06:09→17:48)
[2022-01-18] MEDS: INSULIN HUMULIN R 100 UNIT/ML 3ML SQ SCH ×3 (06:14→17:54)
[2022-01-18] MEDS: NITROGLYCERIN 1GM OINT 1 INCH/1GM TD SCH ×2 (06:14→15:31)
[2022-01-18] MEDS: IPRATROPIUM 0.5 MG/2.5 ML INH IH SCH ×2 (06:20→11:15)
[2022-01-18] MEDS: BUDESONIDE 0.5 MG/2 ML INH IH SCH (06:20)
[2022-01-18 06:31] LABS: BASOPHILS % (AUTO) 0.5 % (0.0-5.0); EOSINOPHILS % (AUTO) 2.5 % (0.0-8.0); HEMATOCRIT 32.8 % (36-48); MEAN CORPUSCULAR HEMOGLOBIN 24.7 pg (27.0-33.0); MEAN CORPUSCULAR VOLUME 77.2 fL (79-99); MONOCYTES % (AUTO) 9.9 % (3.0-13.0); NEUTROPHILS % (AUTO) 58.6 % (40.0-77.0); PLATELET COUNT (AUTO) 164 K/uL (130-400); RED BLOOD CELL COUNT(AUTO) 4.25 MIL/uL (4.00-5.50); RED CELL DISTRIBUTION WIDTH 16.1 % (11.0-15.5)
[2022-01-18 06:46] LABS: ALBUMIN 3.3 g/dL (3.5-5.0); BILIRUBIN,TOTAL 0.4 mg/dL (0.2-1.0); CREATININE 0.8 mg/dL (0.5-1.5); MAGNESIUM 1.9 mg/dL (1.80-2.40); TOTAL PROTEIN, SERUM 7.1 g/dL (6.0-8.3)
[2022-01-18 08:00] VITALS: BP 124/67
[2022-01-18] MEDS ORDERED: INSULIN GLARGINE 100 UNITS/ML 10 ML VIAL SQ SCH (08:00)
[2022-01-18] MEDS: ASPIRIN 81 MG EC TAB PO SCH (09:43)
[2022-01-18] MEDS: DOXYCYCLINE HYCLATE 100 MG TABLET PO SCH (09:43)
[2022-01-18] MEDS: PANTOPRAZOLE 40 MG TAB DR PO SCH (09:43)
[2022-01-18] MEDS: ENOXAPARIN SODIUM 40 MG/0.4 ML SYRINGE SQ SCH (09:43)
[2022-01-18] MEDS: TICAGRELOR 90 MG TABLET PO SCH (09:43)
[2022-01-18] MEDS: PROPRANOLOL HCL 20 MG TAB PO SCH (09:43)
[2022-01-18] MEDS: SIMVASTATIN 20 MG TABLET PO SCH (09:43)
[2022-01-18] MEDS: LORATADINE 10 MG TABLET PO SCH (09:43)
[2022-01-18 12:00] VITALS: BP 135/71
[2022-01-18] MEDS: FLUTICASONE PROPIONATE 50MCG/SPRAY 16 GM BOTTLE EN SCH (13:15)
[2022-01-18 15:53] VITALS: BP 136/76
== END 2022-01-18 19:00 | disposition home or self-care (01) ==
LOC: EDH 17:13 → EDHIP 17:14 → 3DH 23:34
PROVIDERS: ADMIT Internal Medicine; ATTEND Internal Medicine
DX: R07.89 Other chest pain (principal); Z20.822 Contact with and (suspected) exposure to COVID-19; J06.9 Acute upper respiratory infection, unspecified; J30.9 Allergic rhinitis, unspecified; R79.89 Other specified abnormal findings of blood chemistry; E11.65 Type 2 diabetes mellitus with hyperglycemia; E03.9 Hypothyroidism, unspecified; I25.10 Atherosclerotic heart disease of native coronary artery without angina pectoris; I10 Essential (primary) hypertension; E78.5 Hyperlipidemia, unspecified; F31.9 Bipolar disorder, unspecified; F41.9 Anxiety disorder, unspecified; E05.90 Thyrotoxicosis, unspecified without thyrotoxic crisis or storm; K21.9 Gastro-esophageal reflux disease without esophagitis; I21.4 Non-ST elevation (NSTEMI) myocardial infarction; Z90.710 Acquired absence of both cervix and uterus; Z87.891 Personal history of nicotine dependence; Z95.5 Presence of coronary angioplasty implant and graft; Z79.4 Long term (current) use of insulin; Z51.5 Encounter for palliative care
CPT/HCPCS: 36415 ×3; 71045; 80048; 80053 ×2; 80305; 82728; 82948 ×7; 83036; 83540; 83550; 83735 ×2; 84100; 84145; 84439; 84443; 84481; 84484 ×5; 85025 ×3; 85651; 86140; 87071; 87205; 87635; 87804 ×2; 93005; 94640 ×5; 94664; 96372 ×3; 96374; 96376; 99285; C9803; G0378 ×44; J0696 ×3; J1650 ×3; J1815 ×5

== ENCOUNTER 2022-01-22 12:12 | Emergency (ER) | payer MEDICAID ==
[~2022-01-22] VITALS: Ht 167.6 cm; Wt 93.2 kg
[~2022-01-22 12:12] MED LIST changes: +AEC81 PO; -ASPI-1197 PO; -D-ME1POW16 PO; -EMPA25TA PO; +INSU100I3 SQ; -INSU100I45 SQ; -LEVO50TA11 PO; -METO50TA9 PO; -NIRM1TAB PO; -NYST15CR2 TP; -OMEP20CA12 PO; +OMEP20TA20 PO; +PALI546S IM; -PNV1TABL97 PO; +PROP20TA7 PO
[2022-01-22 12:14] VITALS: BP 149/76
[2022-01-22 12:49] LABS: BASOPHILS % (AUTO) 0.2 % (0.0-5.0); EOSINOPHILS % (AUTO) 1.7 % (0.0-8.0); HEMATOCRIT 32.7 % (36-48); LYMPHOCYTES % (AUTO) 27.5 % (21.0-51.0); MEAN CORPUSCULAR HEMOGLOBIN 24.8 pg (27.0-33.0); MEAN CORPUSCULAR HGB CONC 31.5 g/dL (32.0-36.0); MEAN CORPUSCULAR VOLUME 78.8 fL (79-99); MONOCYTES % (AUTO) 6.3 % (3.0-13.0); NEUTROPHILS % (AUTO) 63.4 % (40.0-77.0); PLATELET COUNT (AUTO) 193 K/uL (130-400); RED BLOOD CELL COUNT(AUTO) 4.15 MIL/uL (4.00-5.50); RED CELL DISTRIBUTION WIDTH 15.9 % (11.0-15.5); WHITE BLOOD COUNT (AUTO) 8.8 K/uL (4.8-10.8)
[2022-01-22] MEDS ORDERED: INSULIN HUMULIN R 100 UNIT/ML 3ML IV ONE (13:00)
[2022-01-22] MEDS ORDERED: 0.9%NACL 1000ML 1,000 ML IV SCH (13:00)
[2022-01-22 13:13] LABS: APPEARANCE,URINE Clear (CLEAR); BILIRUBIN,URINE Negative (NEGATIVE); COLOR,URINE Yellow (YELLOW); GLUCOSE, URINE (UA) >=1000 mg/dL (NEGATIVE); KETONES,URINE Negative (NEGATIVE); LEUKOCYTE ESTERASE ,URINE Small (NEGATIVE); NITRATE,URINE Negative (NEGATIVE); OCCULT BLOOD,URINE Trace (NEGATIVE); PH,URINE 5.5 (5.0-8.0); PROTEIN,URINE Negative (NEGATIVE); UROBILINOGEN,URINE 0.2 mg/dL (0.2-1.0)
[2022-01-22 13:18] LABS: ALBUMIN 3.7 g/dL (3.5-5.0); BILIRUBIN,TOTAL 0.3 mg/dL (0.2-1.0); POTASSIUM 4.5 mmol/L (3.5-5.1); TOTAL PROTEIN, SERUM 7.7 g/dL (6.0-8.3)
[2022-01-22 13:28] LABS: BACTERIA,URINE Rare /HPF (None Seen); RBC,URINE 0-1 /HPF (0-1); SQUAMOUS EPITHELIAL CELL,UR Rare /HPF (0-2); WBC,URINE 0-1 /HPF (0-1)
[2022-01-22] MEDS ORDERED: NITROGLYCERIN 1GM OINT 1 INCH/1GM TD ONE (14:00)
[2022-01-22] MEDS ORDERED: ASPIRIN 325MG TAB PO ONE (14:00)
[2022-01-22] MEDS ORDERED: CEPH500B PO (14:38)
== END 2022-01-22 14:54 | disposition home or self-care (01) ==
LOC: EDH 12:12
DX: E11.65 Type 2 diabetes mellitus with hyperglycemia (principal); I10 Essential (primary) hypertension; R77.8 Other specified abnormalities of plasma proteins; E05.90 Thyrotoxicosis, unspecified without thyrotoxic crisis or storm; E66.01 Morbid (severe) obesity due to excess calories; K21.9 Gastro-esophageal reflux disease without esophagitis; F32.A Depression, unspecified; Z79.4 Long term (current) use of insulin; Z79.82 Long term (current) use of aspirin; Z79.899 Other long term (current) drug therapy; Z95.5 Presence of coronary angioplasty implant and graft; Z68.33 Body mass index [BMI] 33.0-33.9, adult
CPT/HCPCS: 36415; 80053; 81001; 82010; 82948 ×2; 84484 ×2; 85025; 93005; 96361; 96374; 99284; J1815; J7030

== ENCOUNTER 2022-01-26 12:15 | Emergency (ER) | payer MEDICAID ==
[~2022-01-26] VITALS: Ht 165.1 cm; Wt 96.2 kg
[2022-01-26 12:49] LABS: BASOPHILS % (AUTO) 0.3 % (0.0-5.0); EOSINOPHILS % (AUTO) 1.8 % (0.0-8.0); HEMATOCRIT 32.1 % (36-48); MEAN CORPUSCULAR HEMOGLOBIN 25.2 pg (27.0-33.0); MEAN CORPUSCULAR HGB CONC 32.4 g/dL (32.0-36.0); MEAN CORPUSCULAR VOLUME 77.9 fL (79-99); MONOCYTES % (AUTO) 6.1 % (3.0-13.0); NEUTROPHILS % (AUTO) 66.1 % (40.0-77.0); PLATELET COUNT (AUTO) 195 K/uL (130-400); RED BLOOD CELL COUNT(AUTO) 4.12 MIL/uL (4.00-5.50); RED CELL DISTRIBUTION WIDTH 15.8 % (11.0-15.5); WHITE BLOOD COUNT (AUTO) 7.2 K/uL (4.8-10.8)
[2022-01-26 13:13] LABS: ALBUMIN 3.5 g/dL (3.5-5.0); BILIRUBIN,TOTAL 0.3 mg/dL (0.2-1.0); CREATININE 0.9 mg/dL (0.5-1.5); POTASSIUM 4.6 mmol/L (3.5-5.1); TOTAL PROTEIN, SERUM 7.7 g/dL (6.0-8.3)
[2022-01-26] MEDS ORDERED: INSULIN HUMULIN R 100 UNIT/ML 3ML IV ONE (14:00)
[2022-01-26] MEDS ORDERED: 0.9%NACL 1000ML 1,000 ML IV ONE (14:00)
[2022-01-26 14:40] LABS: ABG OXYGEN SATURATION 70.6 % (95.0-99.0); BASE EXCESS,VENOUS BLOOD GAS -3.1 (-2.0-3.0); HCO3,VENOUS BLOOD GAS 22.2 (21.0-28.0); PCO2,VENOUS BLOOD GAS 40 (32-45); PH,VENOUS BLOOD GAS 7.358 (7.350-7.450)
[2022-01-26 14:43] LABS: APPEARANCE,URINE Clear (CLEAR); BILIRUBIN,URINE Negative (NEGATIVE); COLOR,URINE Yellow (YELLOW); GLUCOSE, URINE (UA) >=1000 mg/dL (NEGATIVE); KETONES,URINE Negative (NEGATIVE); LEUKOCYTE ESTERASE ,URINE Negative (NEGATIVE); NITRATE,URINE Negative (NEGATIVE); OCCULT BLOOD,URINE Negative (NEGATIVE); PH,URINE 5.5 (5.0-8.0); PROTEIN,URINE Negative (NEGATIVE); UROBILINOGEN,URINE 0.2 mg/dL (0.2-1.0)
[2022-01-26 15:08] LABS: BACTERIA,URINE Rare /HPF (None Seen); RBC,URINE 0-1 /HPF (0-1); SQUAMOUS EPITHELIAL CELL,UR Few /HPF (0-2); WBC,URINE 0-1 /HPF (0-1)
[2022-01-26 15:11] LABS: AMPHET/METH SCREEN,URINE NEGATIVE (NEGATIVE); BARBITURATE SCREEN, URINE NEGATIVE (NEGATIVE); BENZODIAZEPINES SCREEN,URINE NEGATIVE (NEGATIVE); CANNABINOID SCREEN,URINE NEGATIVE (NEGATIVE); COCAINE SCREEN,URINE NEGATIVE (NEGATIVE); OPIATE SCREEN,URINE NEGATIVE (NEGATIVE); PHENCYCLIDINE SCREEN,URINE NEGATIVE (NEGATIVE)
[2022-01-26 15:41] VITALS: BP 135/53
== END 2022-01-26 15:36 | disposition home or self-care (01) ==
LOC: EDH 12:15
DX: E11.65 Type 2 diabetes mellitus with hyperglycemia (principal); R77.8 Other specified abnormalities of plasma proteins; E78.00 Pure hypercholesterolemia, unspecified; I10 Essential (primary) hypertension; Z79.899 Other long term (current) drug therapy; Z79.82 Long term (current) use of aspirin; Z79.84 Long term (current) use of oral hypoglycemic drugs; Z79.4 Long term (current) use of insulin; Z90.89 Acquired absence of other organs; Z90.49 Acquired absence of other specified parts of digestive tract; Z98.890 Other specified postprocedural states
CPT/HCPCS: 36415; 36600; 71045; 80053; 80305; 81001; 82010; 82803; 82948; 84484 ×2; 85025; 93005; 96361; 96374; 99285; J1815; J7030

== ENCOUNTER 2022-02-16 10:36 | Emergency (ER) | payer MEDICAID ==
[~2022-02-16] VITALS: Ht 165.1 cm; Wt 97.5 kg
[2022-02-16 11:22] LABS: APPEARANCE,URINE SL CLOUDY (CLEAR); BILIRUBIN,URINE NEGATIVE (NEGATIVE); COLOR,URINE STRAW (YELLOW); GLUCOSE, URINE (UA) >=1000 mg/dL (NEGATIVE); KETONES,URINE NEGATIVE (NEGATIVE); LEUKOCYTE ESTERASE ,URINE SMALL (NEGATIVE); NITRATE,URINE NEGATIVE (NEGATIVE); OCCULT BLOOD,URINE TRACE-LYSED (NEGATIVE); PH,URINE 5.5 (5.0-8.0); PROTEIN,URINE NEGATIVE (NEGATIVE); UROBILINOGEN,URINE 0.2 mg/dL (0.2-1.0)
[2022-02-16 11:34] LABS: RBC,URINE 0-1 /HPF (0-1)
[2022-02-16 11:35] LABS: BACTERIA,URINE Few /HPF (None Seen); YEAST,URINE BUDDING Moderate /HPF (None Seen)
[2022-02-16] MEDS ORDERED: MAG/ALUM/SIMETH 30 ML UDCUP ONE (12:02)
[2022-02-16] MEDS ORDERED: LIDOCAINE HCL 2% VISCOUS 15 ML UDCUP ONE (12:02)
[2022-02-16] MEDS ORDERED: DICYCLOMINE HCL 10 MG/5 ML ML PO ONE ×2 (12:02→12:30)
[2022-02-16 12:15] VITALS: BP 117/54
[2022-02-16] MEDS ORDERED: MAG-55 PO (12:22)
[2022-02-16] MEDS ORDERED: MAG/ALUM/SIMETH 30 ML UDCUP PO ONE (12:30)
[2022-02-16] MEDS ORDERED: FLUCONAZOLE 100 MG TAB PO ONE (12:30)
[2022-02-16] MEDS ORDERED: LIDOCAINE HCL 2% VISCOUS 15 ML UDCUP PO ONE (12:30)
== END 2022-02-16 12:27 | disposition home or self-care (01) ==
LOC: EDH 10:36
DX: R07.0 Pain in throat (principal); E11.9 Type 2 diabetes mellitus without complications; E78.00 Pure hypercholesterolemia, unspecified; I10 Essential (primary) hypertension; Z79.4 Long term (current) use of insulin; Z79.82 Long term (current) use of aspirin; Z79.899 Other long term (current) drug therapy
CPT/HCPCS: 81001

== ENCOUNTER 2022-02-22 08:24 | Observation (INO) | payer MEDICAID ==
[~2022-02-22] VITALS: Ht 162.6 cm; Wt 93.9 kg
[~2022-02-22 08:24] MED LIST changes: +MAG-55 PO
[2022-02-22 08:50] LABS: HEMATOCRIT 33.6 % (36-48); MEAN CORPUSCULAR HEMOGLOBIN 24.7 pg (27.0-33.0); MEAN CORPUSCULAR HGB CONC 32.1 g/dL (32.0-36.0); MEAN CORPUSCULAR VOLUME 76.9 fL (79-99); PLATELET COUNT (AUTO) 210 K/uL (130-400); RED BLOOD CELL COUNT(AUTO) 4.37 MIL/uL (4.00-5.50); RED CELL DISTRIBUTION WIDTH 15.5 % (11.0-15.5); WHITE BLOOD COUNT (AUTO) 8.9 K/uL (4.8-10.8)
[2022-02-22] MEDS ORDERED: 0.9% NACL 500ML IV.SOLN 500 ML IV ONE (09:00)
[2022-02-22 09:55] LABS: APPEARANCE,URINE Turbid (CLEAR); BILIRUBIN,URINE Negative (NEGATIVE); COLOR,URINE Yellow (YELLOW); GLUCOSE, URINE (UA) 500 mg/dL (NEGATIVE); KETONES,URINE Trace mg/dL (NEGATIVE); LEUKOCYTE ESTERASE ,URINE Large (NEGATIVE); NITRATE,URINE Negative (NEGATIVE); OCCULT BLOOD,URINE Nonhemolyzed Trace (NEGATIVE); PROTEIN,URINE Trace mg/dL (NEGATIVE); UROBILINOGEN,URINE 0.2 mg/dL (0.2-1.0)
[2022-02-22] MEDS ORDERED: ASPIRIN 325MG TAB PO ONE (10:00)
[2022-02-22 10:14] LABS: BACTERIA,URINE Rare /HPF (None Seen); RBC,URINE 0-1 /HPF (0-1); SQUAMOUS EPITHELIAL CELL,UR Few /HPF (0-2); WBC,URINE TNTC /HPF (0-1)
[2022-02-22 10:22] LABS: EOSINOPHILS % (MANUAL) 2 % (1-6); LYMPHOCYTES % (MANUAL) 24 % (22-44); MAN.DIFF COMMENT-IMPRESSION MANUAL DIFFERENTIAL; MONOCYTES % (MANUAL) 2 % (2-9); PLATELET MORPHOLOGY COMMENT ADEQUATE; SEGMENTED NEUTROPHILS % 72 % (40-70)
[2022-02-22 11:16] LABS: CREATININE 1.1 mg/dL (0.5-1.5)
[2022-02-22 11:23] LABS: ALBUMIN 3.5 g/dL (3.5-5.0); TOTAL PROTEIN, SERUM 7.4 g/dL (6.0-8.3)
[2022-02-22] MEDS: FAMOTIDINE 20MG TAB PO SCH (11:47)
[2022-02-22] MEDS ORDERED: ACETAMINOPHEN 325 MG TAB PO PRN ×2 (12:00)
[2022-02-22] MEDS: 0.9%NACL 1000ML 1,000 ML IV SCH ×3 (12:00→23:04)
[2022-02-22] MEDS ORDERED: ONDANSETRON 4MG INJ IV PRN (12:00)
[2022-02-22] MEDS ORDERED: NITROGLYCERIN 0.4 MG SL TAB SL PRN (12:00)
[2022-02-22 12:23] LABS: % IRON SATURATION 11.3 % (22-44)
[2022-02-22] MEDS: ZOSYN 3.375GM+NS 50ML 50 ML IV SCH ×2 (13:19→22:33)
[2022-02-22 13:32] VITALS: BP 136/74
[2022-02-22 16:15] VITALS: BP 158/80
[2022-02-22 20:16] VITALS: BP 148/76
[2022-02-22] MEDS ORDERED: SIMVASTATIN 20 MG TABLET PO SCH (21:00)
[2022-02-22] MEDS ORDERED: FOLIC ACID 1 MG TABLET PO SCH (21:00)
[2022-02-22] MEDS: METHIMAZOLE 10 MG TAB PO SCH (21:00)
[2022-02-22] MEDS ORDERED: INSULIN LISPRO 100 UNIT/ML 3ML SQ SCH (21:00)
[2022-02-22] MEDS ORDERED: SERTRALINE HCL 50 MG TABLET PO SCH (21:00)
[2022-02-22] MEDS ORDERED: IRON SUCROSE COMPLEX 500 MG in 0.9%NACL 50ML 50 ML IV SCH (21:00)
[2022-02-22] MEDS: TICAGRELOR 90 MG TABLET PO SCH (22:34)
[2022-02-22] MEDS: METOCLOPRAMIDE 5 MG TABLET PO SCH (22:34)
[2022-02-22 23:53] VITALS: BP 140/64
[2022-02-23 04:09] VITALS: BP 138/77
[2022-02-23 04:17] LABS: CHOLESTEROL 137 mg/dL (<200); CREATINE KINASE, TOTAL 36 U/L (21-232); HDL CHOLESTEROL 33 mg/dL (35-85); LDL DIRECT 81 mg/dL (0-99); MYOGLOBIN 18 ng/mL (10-92); TRIGLYCERIDES 191 mg/dL (30-200)
[2022-02-23] MEDS: ZOSYN 3.375GM+NS 50ML 50 ML IV SCH (04:47)
[2022-02-23] MEDS: 0.9%NACL 1000ML 1,000 ML IV SCH (06:17)
[2022-02-23 08:16] VITALS: BP 132/58
[2022-02-23] MEDS ORDERED: Nitroglycerin 0.4MG Sl Tab SL (08:51)
[2022-02-23] MEDS ORDERED: LEVO500T90 PO (08:51)
[2022-02-23 08:56] LABS: BASOPHILS % (AUTO) 0.3 % (0.0-5.0); EOSINOPHILS % (AUTO) 2.5 % (0.0-8.0); HEMATOCRIT 32.7 % (36-48); MEAN CORPUSCULAR HEMOGLOBIN 23.9 pg (27.0-33.0); MEAN CORPUSCULAR HGB CONC 31.2 g/dL (32.0-36.0); MEAN CORPUSCULAR VOLUME 76.8 fL (79-99); MONOCYTES % (AUTO) 6.6 % (3.0-13.0); NEUTROPHILS % (AUTO) 81.3 % (40.0-77.0); PLATELET COUNT (AUTO) 162 K/uL (130-400); RED BLOOD CELL COUNT(AUTO) 4.26 MIL/uL (4.00-5.50); RED CELL DISTRIBUTION WIDTH 15.4 % (11.0-15.5); WHITE BLOOD COUNT (AUTO) 5.9 K/uL (4.8-10.8)
[2022-02-23] MEDS ORDERED: INSULIN LISPRO 100 UNIT/ML 3ML SQ SCH ×2 (09:00→11:30)
[2022-02-23] MEDS ORDERED: PROPRANOLOL HCL 20 MG TAB PO SCH (09:00)
[2022-02-23] MEDS ORDERED: ENOXAPARIN SODIUM 40 MG/0.4 ML SYRINGE SQ SCH (09:00)
[2022-02-23] MEDS ORDERED: INSULIN GLARGINE 100 UNITS/ML 10 ML VIAL SQ SCH (09:00)
[2022-02-23] MEDS ORDERED: ASPIRIN 81 MG EC TAB PO SCH (09:00)
[2022-02-23] MEDS ORDERED: FOLIC ACID 1 MG TABLET PO SCH (09:00)
[2022-02-23 09:13] LABS: CREATININE 0.8 mg/dL (0.5-1.5)
[2022-02-23 10:24] LABS: % IRON SATURATION 99.3 % (22-44)
[2022-02-23] MEDS: TICAGRELOR 90 MG TABLET PO SCH (10:32)
[2022-02-23] MEDS: FAMOTIDINE 20MG TAB PO SCH (10:33)
[2022-02-23] MEDS: METHIMAZOLE 10 MG TAB PO SCH (10:33)
[2022-02-23] MEDS: METOCLOPRAMIDE 5 MG TABLET PO SCH (10:41)
[2022-02-23 11:53] VITALS: BP 140/70
[2022-02-25] MEDS ORDERED: PALIPERIDONE PALMITATE IM SCH (09:00)
== END 2022-02-23 14:20 | disposition home or self-care (01) ==
LOC: EDH 08:24 → EDHIP 08:25 → INTOOBSV 08:25 → 2AH 13:08
PROVIDERS: ADMIT Internal Medicine; ATTEND Internal Medicine
DX: A41.9 Sepsis, unspecified organism (principal); I24.9 Acute ischemic heart disease, unspecified; N30.00 Acute cystitis without hematuria; R07.89 Other chest pain; E86.1 Hypovolemia; N17.9 Acute kidney failure, unspecified; E11.65 Type 2 diabetes mellitus with hyperglycemia; I10 Essential (primary) hypertension; I25.10 Atherosclerotic heart disease of native coronary artery without angina pectoris; D50.9 Iron deficiency anemia, unspecified; E03.9 Hypothyroidism, unspecified; E78.00 Pure hypercholesterolemia, unspecified; F31.9 Bipolar disorder, unspecified; E88.89 Other specified metabolic disorders; R42 Dizziness and giddiness; F41.9 Anxiety disorder, unspecified; M19.90 Unspecified osteoarthritis, unspecified site; Z90.710 Acquired absence of both cervix and uterus; Z79.4 Long term (current) use of insulin; Z79.84 Long term (current) use of oral hypoglycemic drugs; Z79.82 Long term (current) use of aspirin; Z79.899 Other long term (current) drug therapy; Z98.890 Other specified postprocedural states; Z98.61 Coronary angioplasty status; Z98.891 History of uterine scar from previous surgery
CPT/HCPCS: 96372 ×2; 96361 ×2; 96365; 96366 ×2; 96368; 99285; 83036; 83540 ×2; 83550 ×2; 82550 ×4; 83735; 83874 ×4; 84484 ×4; 80053; 83880; 82728; 85025 ×2; 87088; 82746; 81001; 36415 ×2; 71045; 93005 ×4; 84145; 80061; 80048; 82948 ×2; 97161; 97039; J2543 ×3; J1756; G0378 ×4; J1650

== ENCOUNTER 2022-02-27 12:58 | Emergency (ER) | payer MEDICAID ==
[~2022-02-27] VITALS: Ht 165.1 cm; Wt 89.8 kg
[~2022-02-27 12:58] MED LIST changes: +LEVO500T90 PO; -MAG-55 PO; +Nitroglycerin 0.4MG Sl Tab SL; -OMEP20TA20 PO; -PROP20TA7 PO
[2022-02-27 13:36] LABS: BASOPHILS % (AUTO) 0.3 % (0.0-5.0); EOSINOPHILS % (AUTO) 1.6 % (0.0-8.0); HEMATOCRIT 34.3 % (36-48); LYMPHOCYTES % (AUTO) 15.8 % (21.0-51.0); MEAN CORPUSCULAR HEMOGLOBIN 24.2 pg (27.0-33.0); MEAN CORPUSCULAR HGB CONC 31.8 g/dL (32.0-36.0); MEAN CORPUSCULAR VOLUME 76.2 fL (79-99); MONOCYTES % (AUTO) 7.7 % (3.0-13.0); NEUTROPHILS % (AUTO) 74.1 % (40.0-77.0); PLATELET COUNT (AUTO) 197 K/uL (130-400); RED CELL DISTRIBUTION WIDTH 15.8 % (11.0-15.5); WHITE BLOOD COUNT (AUTO) 9.3 K/uL (4.8-10.8)
[2022-02-27 13:48] LABS: CARBON DIOXIDE 26 mmol/L (21-32); CHLORIDE 100 mmol/L (101-111); CREATININE 1.2 mg/dL (0.5-1.5); GLOMERULAR FILTR. RATE CALC 49 mL/min (>60); GLUCOSE,RANDOM 274 mg/dL (70-105); SODIUM SERUM 137 mmol/L (136-145); UREA NITROGEN, BLOOD 16 mg/dL (7-18)
[2022-02-27 13:57] LABS: ALANINE AMINOTRANSFERASE 19 U/L (12-78); ALBUMIN 3.6 g/dL (3.5-5.0); ASPARTATE AMINOTRANSFERASE 20 U/L (10-37); CREATINE KINASE, TOTAL 38 U/L (21-232); TOTAL PROTEIN, SERUM 7.3 g/dL (6.0-8.3)
[2022-02-27 14:10] LABS: B-TYPE NATRIURETIC PEPTIDE 70 pg/mL (0-100)
[2022-02-27 14:53] LABS: APPEARANCE,URINE Cloudy (CLEAR); BILIRUBIN,URINE Small (NEGATIVE); COLOR,URINE Dark Yellow (YELLOW); GLUCOSE, URINE (UA) >=1000 mg/dL (NEGATIVE); KETONES,URINE 15 mg/dL (NEGATIVE); LEUKOCYTE ESTERASE ,URINE Moderate (NEGATIVE); NITRATE,URINE Negative (NEGATIVE); OCCULT BLOOD,URINE Small (NEGATIVE); PH,URINE 5.5 (5.0-8.0); PROTEIN,URINE POS 2+ mg/dL (NEGATIVE)
[2022-02-27] MEDS ORDERED: NITROGLYCERIN 1GM OINT 1 INCH/1GM TD ONE (15:00)
[2022-02-27] MEDS ORDERED: ASPIRIN 325MG TAB PO ONE (15:00)
[2022-02-27 15:02] VITALS: BP 123/61
[2022-02-27 15:11] LABS: BACTERIA,URINE Few /HPF (None Seen); SQUAMOUS EPITHELIAL CELL,UR Moderate /HPF (0-2)
[2022-02-27 15:12] LABS: MUCUS,URINE Few LPF (None Seen)
[2022-02-27] MEDS ORDERED: CEFTRIAXONE 1G VIAL IVP ONE (15:30)
[2022-02-27] MEDS ORDERED: CEPH500B PO (15:50)
== END 2022-02-27 15:59 | disposition home or self-care (01) ==
LOC: EDH 12:58
DX: N39.0 Urinary tract infection, site not specified (principal); I95.1 Orthostatic hypotension; E86.0 Dehydration; Z20.822 Contact with and (suspected) exposure to COVID-19; E11.9 Type 2 diabetes mellitus without complications; E78.00 Pure hypercholesterolemia, unspecified; F41.9 Anxiety disorder, unspecified; F31.9 Bipolar disorder, unspecified; I10 Essential (primary) hypertension; I25.10 Atherosclerotic heart disease of native coronary artery without angina pectoris; M19.90 Unspecified osteoarthritis, unspecified site; E05.90 Thyrotoxicosis, unspecified without thyrotoxic crisis or storm; E66.9 Obesity, unspecified; Z79.4 Long term (current) use of insulin; Z79.82 Long term (current) use of aspirin; Z79.899 Other long term (current) drug therapy; Z68.32 Body mass index [BMI] 32.0-32.9, adult
CPT/HCPCS: 99285; 96374; 70450; 71045; 87635; 82550; 84484 ×2; 80053; 83880; 85025; 87088; 87804 ×2; 81001; 36415; 93005; C9803; J0696

== ENCOUNTER 2022-03-15 18:43 | Emergency (ER) | payer MEDICAID ==
[~2022-03-15 18:43] MED LIST changes: +CEPH500B PO
[2022-03-15 19:15] LABS: CREATININE 0.9 mg/dL (0.5-1.5); POTASSIUM 3.7 mmol/L (3.5-5.1)
[2022-03-15 19:16] LABS: BASOPHILS % (AUTO) 0.3 % (0.0-5.0); EOSINOPHILS % (AUTO) 2.7 % (0.0-8.0); HEMATOCRIT 33.4 % (36-48); LYMPHOCYTES % (AUTO) 29.6 % (21.0-51.0); MEAN CORPUSCULAR HEMOGLOBIN 24.7 pg (27.0-33.0); MEAN CORPUSCULAR HGB CONC 32.3 g/dL (32.0-36.0); MEAN CORPUSCULAR VOLUME 76.3 fL (79-99); MONOCYTES % (AUTO) 7.5 % (3.0-13.0); NEUTROPHILS % (AUTO) 59.3 % (40.0-77.0); PLATELET COUNT (AUTO) 179 K/uL (130-400); RED BLOOD CELL COUNT(AUTO) 4.38 MIL/uL (4.00-5.50); RED CELL DISTRIBUTION WIDTH 16.1 % (11.0-15.5)
[2022-03-15 19:22] LABS: ALBUMIN 3.7 g/dL (3.5-5.0); MAGNESIUM 1.6 mg/dL (1.80-2.40); TOTAL PROTEIN, SERUM 7.6 g/dL (6.0-8.3)
[2022-03-15 19:40] VITALS: BP 153/71
[2022-03-15] MEDS ORDERED: ASPIRIN 81MG CHEW TAB ONE (20:14)
[2022-03-15] MEDS ORDERED: ACETAMINOPHEN 325 MG TAB ONE (20:14)
[2022-03-15] MEDS ORDERED: ACETAMINOPHEN 325 MG TAB PO ONE (20:30)
[2022-03-15] MEDS ORDERED: ASPIRIN 81MG CHEW TAB PO ONE (20:30)
[2022-03-15] MEDS ORDERED: MAGNESIUM OXIDE 400 MG TABLET PO SCH (21:00)
[2022-03-15] MEDS ORDERED: ACET-2079 PO (21:19)
[2022-03-15] MEDS ORDERED: ONDANSETRON 4MG INJ IVP ONE (21:30)
[2022-03-15] MEDS ORDERED: MORPHINE 2 MG SYG IVP ONE (21:30)
== END 2022-03-16 03:25 | disposition home or self-care (01) ==
LOC: EDH 18:43
DX: M25.512 Pain in left shoulder (principal); R07.89 Other chest pain; E11.9 Type 2 diabetes mellitus without complications; E78.00 Pure hypercholesterolemia, unspecified; I25.10 Atherosclerotic heart disease of native coronary artery without angina pectoris; K21.9 Gastro-esophageal reflux disease without esophagitis; Z79.4 Long term (current) use of insulin; Z79.82 Long term (current) use of aspirin; Z79.899 Other long term (current) drug therapy
CPT/HCPCS: 99285; 96374; 71045; 96375; 83735; 84484 ×2; 80053; 85025; 36415; 93005; J2405

== ENCOUNTER → 2022-03-30 | Outpatient (CLI) | payer MEDICAID ==
[~2022-03-30] MED LIST changes: +ACET-2079 PO; +LEVO-70 PO; -LEVO500T90 PO
== END | disposition home or self-care (01) ==
LOC: SHCH 10:05
PROVIDERS: ATTEND Internal Medicine Cardiovascular Disease
DX: I65.23 Occlusion and stenosis of bilateral carotid arteries (principal); I10 Essential (primary) hypertension
CPT/HCPCS: 93925

== ENCOUNTER → 2022-09-20 | Outpatient (CLI) | payer MEDICAID ==
[~2022-09-20] MED LIST changes: -ACET-2079 PO; -CEPH500B PO; +GABA-529 PO; -LEVO-70 PO; +METO-408 PO; +OMEP20TA20 PO; +PALI3TAB5 PO; +REGADENOSON 0.4 MG/5 ML PF SYG IVP SCH
== END | disposition home or self-care (01) ==
LOC: SHCH 08:33
PROVIDERS: ATTEND Internal Medicine Cardiovascular Disease
DX: I25.10 Atherosclerotic heart disease of native coronary artery without angina pectoris (principal); E11.9 Type 2 diabetes mellitus without complications; I10 Essential (primary) hypertension; E78.5 Hyperlipidemia, unspecified; Z95.5 Presence of coronary angioplasty implant and graft
CPT/HCPCS: 78452; 96374; 93017; J2785; A9500 ×2

== ENCOUNTER 2022-09-30 11:40 | Emergency (ER) | payer MEDICAID ==
[~2022-09-30] VITALS: Ht 165.1 cm; Wt 90.3 kg
[~2022-09-30 11:40] MED LIST changes: -REGADENOSON 0.4 MG/5 ML PF SYG IVP SCH
[2022-09-30 12:45] VITALS: BP 128/67
== END 2022-09-30 15:26 | disposition left against medical advice (07) ==
LOC: EDH 11:40
DX: E11.65 Type 2 diabetes mellitus with hyperglycemia (principal); Z53.21 Procedure and treatment not carried out due to patient leaving prior to being seen by health care provider

== ENCOUNTER 2025-04-16 12:14 | Emergency (ER) | payer MEDICAID ==
[~2025-04-16] VITALS: Ht 162.6 cm; Wt 81.6 kg
[~2025-04-16 12:14] MED LIST changes: -AEC81 PO; +ASPI-1197 PO; +BUSP7.5T7 PO; +CLOP75TA32 PO; -FAMO20TA8 PO; +FLUD.1 PO; +FLUO-418 PO; -GABA-529 PO; -INSU100I3 SQ; -INSU300I SQ; +MECL-226 PO; +METF-444 PO; -METF-526 PO; -METO-408 PO; -METO5TAB2 PO; +MIDO5TAB4 PO; -Nitroglycerin 0.4MG Sl Tab SL; -OMEP20TA20 PO; -PALI3TAB5 PO; -PALI546S IM; +PIND5TAB8 PO; +PRAV40TA62 PO; +REPA1TAB5 PO; -SERT-440 PO; -SIMV-46 PO; -TICA90TA PO; +miDODRine HCL 5 MG TABLET PO
[2025-04-16 12:16] VITALS: BP 130/80; PULSE 107; RESP 20; TEMP 98.4
--- NOTE | 2025-04-16 14:54 | HMCIMG ---
EXAM: CR right Hip, 3 View. CLINICAL HISTORY: atraumatic pain COMPARISON: None provided. FINDINGS: Severe bilateral hip joint osteoarthritis, more pronounced on the right. Spondylosis of the visualized lower lumbar spine. No displaced fracture. IMPRESSION: 1. No acute findings. 2. Severe bilateral hip joint osteoarthritis, more pronounced on the right. /[place]
--- NOTE | 2025-04-16 15:02 | HMCIMG ---
EXAM: CR Lumbar Spine, 3 View. CLINICAL HISTORY: atraumatic pain COMPARISON: None provided. FINDINGS: The lumbar alignment is within normal limits. There is straightening of the lumbar spine that may reflect paraspinal muscle spasm. There is lumbar spondylosis evident by small to moderate anterior osteophytes and syndesmophytes at multiple levels. There is multilevel facet joint osteoarthritis. Mild multilevel disc disease. No displaced fracture. No spondylolisthesis. IMPRESSION: 1. No acute fracture or spondylolisthesis. 2. Degenerative changes of the lumbar spine including spondylosis, facet joint osteoarthritis, and mild disc disease. 3. Straightening of the lumbar spine, possibly due to paraspinal muscle spasm. /[place]
[2025-04-16 15:26] LABS: APPEARANCE,URINE CLEAR (CLEAR); GLUCOSE, URINE (UA) NEGATIVE (NEGATIVE); LEUKOCYTE ESTERASE ,URINE NEGATIVE Leu/uL (NEGATIVE); NITRATE,URINE NEGATIVE (NEGATIVE); OCCULT BLOOD,URINE NEGATIVE (NEGATIVE)
[2025-04-16 15:33] LABS: ADD UA MICROSCOPIC NO
--- NOTE | 2025-04-16 15:49 | ERN ---
General Chief Complaint: Back Pain-No Injury Stated Complaint: NON TRAUMATIC BACK PAIN AND RT LEG PAIN Time Seen by MD: 12:26 Time Seen by Midlevel: 12:26 Source: patient History of Present Illness Initial Comments Patient is a 64-year-old female presenting to the emergency department for evaluation of atraumatic back pain in right hip pain. Patient denies any direct injury or trauma to the area. Denies any urinary/bowel incontinence. Denies any numbness or weakness to bilateral lower extremities. Denies any dysuria, hematuria, or any other symptoms at this time. Allergies: Coded Allergies: No Known Drug Allergies (Verified Allergy, Unknown, 05/14/16) Home Meds Active Scripts Meclizine HCl (Meclizine HCl) 12.5 Mg Tablet, 12.5 MG PO TID PRN for DIZZINESS for 10 Days, #30 TAB 1 Refill Prov:MAYE PICKETT MD 04/05/25 Midodrine HCl (Midodrine HCl) 5 Mg Tablet, 3 TAB PO TID for 30 Days, #270 TAB 1 Refill Prov:MAYE PICKETT MD 02/28/25 Pindolol (Visken) 5 Mg Tab, 10 MG PO BID for 30 Days, #60 TAB 1 Refill Prov:MAYE PICKETT MD 02/28/25 [miDODRine HCL 5 MG TABLET] 5 MG TABLET No Conflict Check, 15 MG PO TID@0 900,1300,2100 for 30 Days, #270 1 Refill Prov:MAYE PICKETT MD 02/28/25 Fludrocortisone Acetate (Florinef) 0.1 Mg Tab, 0.1 MG PO BID, #60 TAB Prov:BERONICA BARRY [employer] 02/06/25 Reported Medications Fluoxetine HCl (Fluoxetine HCl) 20 Mg Capsule, 20 MG PO DAILY, CAP 04/01/25 Buspirone HCl (Buspirone HCl) 7.5 Mg Tablet, 7.5 MG PO HS, TAB 04/01/25 Methimazole (Methimazole) 5 Mg Tablet, 1 TAB PO DAILY for 30 Days, #30 TAB 0 Refills 02/26/25 Repaglinide (Repaglinide) 1 Mg Tablet, 1 TAB PO DAILY for diabetes for 30 Days, #30 TAB 0 Refills 7/15/25 Clopidogrel Bisulfate (Clopidogrel) 75 Mg Tablet, 1 TAB PO DAILY for 30 Days, #30 TAB 0 Refills 02/26/25 Meclizine HCl (Meclizine HCl) 12.5 Mg Tablet, 1 TAB PO TID PRN for DIZZINESS for 10 Days, #30 TAB 0 Refills 02/26/25 Metformin HCl (Metformin HCl) 500 Mg Tablet, 500 MG PO BIDMEALS, TAB 01/14/25 Pravastatin Sodium (Pravastatin Sodium) 40 Mg Tablet, 40 MG PO HS, TAB 01/14/25 Aspirin (Aspirin) 81 Mg Tab.chew, 81 MG PO DAILY, TAB.CHEW 01/14/25 Past Medical History Past Medical History: Diabetes-Type II, High Cholesterol, Hypertension, Other Medical History Other: ORTHOSTATIC HYPOTENSION Past Surgical History: Other, Surgical History Other: R SHOULDER Family History Family History: Negative Social History Social History: Negative, Lives with family, Other Female( History) History: Not Applicable ROS Dictation CONSTITUTIONAL: Negative except for HPI HEAD/FACE: Negative except for HPI EENT: Negative except for HPI RESPIRATORY: Negative except for HPI GASTROINTESTINAL/ABDOMINAL: Negative except for HPI GENITOURINARY: Negative except for HPI MUSCULOSKELETAL: Negative except for HPI INTEGUMENTARY: Negative except for HPI NEUROLOGICAL/PSYCH: Negative except for HPI HEMATOLOGIC/LYMPHATIC: Negative except for HPI All Systems Negative, Except as noted above. 13 point review of systems assessed and all negative except for above. Physical Exam Physical Exam Dictation Vital Signs reviewed General Appearance: Alert, oriented x 3, no acute distress, well developed, nourished. Head and Face: non-traumatic. Eyes: PERRL, pink conjunctivas, eyelid no trauma, anterior chamber with arcus senilis. Ears: Pinnas intact and no signs of trauma or erythema ear canals clear and no discharge TM no erythema Nose: No discharge, no bleeding. Oropharynx: Mouth normal, tongue pink, pharynx clear,no erythema, tonsils no exudates, no abscesses noted, mucous membrane moist Neck: Supple, non-tender, no thyromegaly, no masses, no JVD, no bruits Breast:Deferred Chest:No tenderness, no crepitus, no paradoxical movement, no retractions Lungs:Clear, well-ventilated, symmetric, no rales, no wheezing, no rhonchi, no stridor, good breath sounds bilaterally Heart: Regular rate, regular rhythm, no murmur, no gallops Vascular: no peripheral edema, Abdomen: Soft, positive bowel sounds, nondistended, no guarding, nontender, no rebound, no masses no hepatomegaly, no splenomegaly, no Moran's sign, no hernias. Rectal: Deferred Genital: Deferred Neurological: Normal speech, motor function intact, sensory function intact Musculoskeletal: Neck nontender, full range of motion, back nontender, full range of motion, Extremities: nontender, full range of motion Skin: Color pink, dry, no turgor, no rash, no lacerations, no abrasions, no contusions. Lymphatic: Deferred Results Laboratory and Microbiology Lab and Micro Result Laboratory Tests Test 04/16/25 14:54 Urine Color LIGHT-YELLOW (YELLOW) Urine Appearance CLEAR (CLEAR) Urine pH 5.5 (5.0-8.0) Urine Specific Point Clear 1.010 (1.001-1.031) Urine Protein NEGATIVE mg/dL (NEGATIVE) Urine Glucose (UA) NEGATIVE mg/dL (NEGATIVE) Urine Ketones NEGATIVE mg/dL (NEGATIVE) Urine Occult Blood NEGATIVE (NEGATIVE) Urine Nitrate NEGATIVE (NEGATIVE) Urine Bilirubin NEGATIVE mg/dL (NEGATIVE) Urine Urobilinogen 0.2 mg/dL (0.2-1.0) Urine Leukocyte Esterase NEGATIVE Rebecca/uL Labs Reviewed?: Yes MDM MDM: Differential diagnosis: Urinary tract infection, musculoskeletal pain, lumbar strain, arthritis There are no social concerns with this patient. Prescription drug management Prescriptions will include: Toradol Medical management and examination interpretation discussions were had by me with other qualified healthcare professionals as indicated for the patient's care. ED Course Orders Procedure Category Date Status Time Hip Unilat 4vw Right RAD 04/16/25 Resulted 12:51 Lumbar Spine 2-3vws RAD 04/16/25 Resulted 12:51 Urinalysis Profile LAB 04/16/25 Complete 12:51 Ketorolac PHA 04/16/25 Complete Tromethamine 15mg/Ml 15:30 Current Medications Medications (Trade) Dose Ordered Sig/Josefa Route PRN Reason Start Time Stop Time Status Last Admin Dose Admin Ketorolac Tromethamine (toRADol) 15 mg ONCE ONCE IM 04/16/25 15:30 04/16/25 15:31 DC 04/16/25 15:11 Vital Signs Date Time Temp Pulse Resp B/P (MAP) Pulse Ox O2 Delivery O2 Flow Rate FiO2 04/16/25 12:16 98.4 107 20 130/80 94 Room Air DX & DISP Disposition: Discharge Departure Impression: Primary Impression: Arthritis of right hip Condition: Stable Additional Instructions: Your hip/pelvis x-ray reveals severe arthritis to both hip joints that has most pronounced on the right hip joint. You may take Tylenol and Motrin as needed for pain. You need to follow up with your primary care doctor for orthopedic surgery referral. Referrals: ALONDRA ROY MD (PCP) ANGELES CHAIREZ MD I have reviewed the case, and I agree with, Diagnosis and Plan I performed the substantive portion of the visit. I have reviewed and personally made and approve the management plan that is documented in the note by myself or the LAMIN. I acknowledge for responsibility for the patient's management plan. BROOKE PONCE Apr 16, 2025 15:49
== END 2025-04-16 16:15 | disposition home or self-care (01) ==
LOC: EDH 12:14
DX: M16.11 Unilateral primary osteoarthritis, right hip (principal); E11.9 Type 2 diabetes mellitus without complications; E78.00 Pure hypercholesterolemia, unspecified; I10 Essential (primary) hypertension; Z79.02 Long term (current) use of antithrombotics/antiplatelets; Z79.82 Long term (current) use of aspirin; Z79.899 Other long term (current) drug therapy
CPT/HCPCS: 99284; 81003; 73503; 72100; 96372; J1885

== ENCOUNTER → 2025-05-14 | Outpatient (CLI) | payer MEDICAID ==
[2025-05-14 09:55] LABS: INR 0.98 (0.85-1.15)
--- NOTE | 2025-05-14 11:10 | NUR ---
ULTRASOUND GUIDED RIGHT THYROID NODULE FINE NEEDLE ASPIRATION PROCEDURE PERFORMED BY DR. NATHAN PATEL. PUNCTURE SITE RIGHT NECK AND PATIENT TOLERATED PROCEDURE WELL. SPECIMEN X4 COLLECTED AND RECEIVED BY JAMIL FROM LAB. END OF PROCEDURE AT 1050. NEEDLE REMOVED AND BAND-AID APPLIED- NO BLEEDING NOTED. DISCHARGE INSTRUCTIONS GIVEN TO PATIENT AND VERBALIZED UNDERSTANDING. PATIENT DISCHARGED IN STABLE CONDITION VIA AMBULATORY WITH WALKER WITH NO C/O PAIN.
--- NOTE | 2025-05-14 11:12 | HMCIMG ---
PROCEDURE: Ultrasound-guided right thyroid nodule fine needle aspiration; dated 05/14/2025 INDICATION: Right thyroid nodule thyroid nodule. STAFF: Inessa ANESTHESIA: Local, 1% lidocaine plain FINDINGS: Informed consent was obtained. Patient was placed in the supine position prepped and draped in the usual sterile fashion. Under ultrasound guidance, the right thyroid nodule was localized. Local anesthetic was applied using 1% plain lidocaine. The nodule measured 2.06 x 1.65 x 2.14 maximum dimensions and appears heterogeneously heterogeneous. Fine needle aspiration using coaxial technique with an 18 gauge introducer needle and a 22-gauge aspiration needle was performed under ultrasound guidance. 4 passes were made and reviewed directly by the registered radiologic technologist, who confirmed adequate cytology. The patient tolerated the procedure well. SPECIMEN: 4 FNA passes, reviewed by floor technician COMPLICATIONS: None. EBL: Minimal. IMPRESSION: Status post ultrasound-guided right thyroid nodule fine needle aspiration, sent to pathology for further evaluation. I was present for the procedure and I have reviewed the images and I agree with the findings and conclusions reported above.
== END ==
LOC: RAH 07:29
PROVIDERS: ATTEND Internal Medicine
DX: E04.1 Nontoxic single thyroid nodule (principal); I10 Essential (primary) hypertension; E78.5 Hyperlipidemia, unspecified; E11.40 Type 2 diabetes mellitus with diabetic neuropathy, unspecified; E05.00 Thyrotoxicosis with diffuse goiter without thyrotoxic crisis or storm; E66.9 Obesity, unspecified; Z68.29 Body mass index [BMI] 29.0-29.9, adult; Z79.01 Long term (current) use of anticoagulants; Z79.82 Long term (current) use of aspirin; Z79.899 Other long term (current) drug therapy
CPT/HCPCS: 10005; 36415; 85610; 85730; 88173; 88305